=== PATIENT | male | born 1940 | race Caucasian/White ===

== ENCOUNTER 2016-11-02 09:22 | Emergency (ER) | payer MEDICARE, OTHER ==
[~2016-11-02] VITALS: Ht 154.9 cm; Wt 75.7 kg
[~2016-11-02 09:22] MED LIST: AMMO226L TP; BUDE6HFA INH; IBUP-1480 PO; INSU100V26 SUBCUT; INSU100V9 SUBCUT; ISOS120T8 PO; LATA2.5D6 OP; LISI2.5T48 PO; MENTHOL TP; METF-509 PO; OMEP20CA10 PO; ROFL500T PO; SIMV5TAB53 PO; TAMS0.4C96 PO; VIS25 PO; VITD2000 PO; [UNRECOGNIZED DRUG - CODE] TP; [UNRECOGNIZED DRUG - OTHER] TP; ergocalciferol PO; insulin syringe SQ
[2016-11-02 09:30] VITALS: BP_SYST 126
[2016-11-02 11:25] VITALS: BP_SYST 128
== END 2016-11-02 11:25 | disposition home or self-care (01) ==
LOC: SED 09:24
DX: M54.30 Sciatica, unspecified side (principal); J44.9 Chronic obstructive pulmonary disease, unspecified; E11.9 Type 2 diabetes mellitus without complications; I10 Essential (primary) hypertension; Z79.4 Long term (current) use of insulin; Z88.5 Allergy status to narcotic agent; Z88.8 Allergy status to other drugs, medicaments and biological substances
CPT/HCPCS: 72100-TC; 73510-TC; 99284

== ENCOUNTER 2017-08-09 17:11 | Emergency (ER) | payer OTHER ==
[~2017-08-09] VITALS: Ht 154.9 cm; Wt 74.8 kg
[2017-08-09 17:17] VITALS: BP_SYST 107
[2017-08-09] MEDS ORDERED: ASPIRIN 325 MG TABLET PO ONE (17:30)
[2017-08-09] MEDS ORDERED: IPRATROPIUM/ALBUTEROL SULFATE 3 ML AMPUL.NEB INH ONE (17:45)
[2017-08-09] MEDS ORDERED: methylPREDNISolone SOD SUCC/PF 62.5 MG/ML VIAL IM ONE (17:45)
[2017-08-09 17:51] LABS: BASOPHILS % (AUTO) 0.6 % (0.0-2.0); EOSINOPHILS # (AUTO) 0.3 K/uL (0.0-0.4); EOSINOPHILS % (AUTO) 3.8 % (0.0-4.0); HEMATOCRIT 36.6 % (36-54); HEMOGLOBIN 11.5 g/dL (14.0-18.0); LYMPHOCYTES # (AUTO) 0.5 K/uL (1.0-5.5); MEAN CORPUSCULAR HEMOGLOBIN 21 pg (27-31); MEAN CORPUSCULAR HGB CONC 32 % (32-36); MEAN CORPUSCULAR VOLUME 65 fL (79.0-98.0); MONOCYTES # (AUTO) 0.8 K/uL (0.0-1.0); NEUTROPHILS # (AUTO) 6.2 K/uL (1.8-7.7); NEUTROPHILS % (AUTO) 78.6 % (40.0-70.0); PLATELET COUNT (AUTO) 191 K/uL (130-430); RED BLOOD CELL COUNT(AUTO) 5.63 MIL/uL (4.2-6.2); RED CELL DISTRIBUTION WIDTH 15.4 % (9.0-15.0); WHITE BLOOD COUNT (AUTO) 7.9 K/uL (4.8-10.8)
[2017-08-09] MEDS ORDERED: ACLI400A2 IH (18:06)
[2017-08-09] MEDS ORDERED: ISOS30TA6 PO (18:06)
[2017-08-09] MEDS ORDERED: LISI-209 PO (18:06)
[2017-08-09] MEDS ORDERED: LATA2.5D6 OP (18:06)
[2017-08-09] MEDS ORDERED: INSU100I4 SQ (18:06)
[2017-08-09] MEDS ORDERED: CETI1TAB2 PO (18:06)
[2017-08-09] MEDS ORDERED: GUAI100S14 PO (18:06)
[2017-08-09] MEDS ORDERED: INSU100V9 SUBCUT (18:06)
[2017-08-09] MEDS ORDERED: FINA5TAB3 PO (18:06)
[2017-08-09] MEDS ORDERED: ATOR20TA64 PO (18:06)
[2017-08-09] MEDS ORDERED: DITXL5 PO (18:07)
[2017-08-09] MEDS ORDERED: GLU500 PO (18:07)
[2017-08-09 18:12] LABS: ANION GAP 4 (5-15); CALCIUM 8.8 mg/dL (8.4-11.0); CHLORIDE 96 mmol/L (98-107); CREATININE 1.03 mg/dL (0.55-1.30); GLUCOSE 134 mg/dL (70-99); POTASSIUM 4.4 mmol/L (3.5-5.1); SODIUM SERUM 129 mmol/L (136-145); UREA NITROGEN, BLOOD 18 mg/dL (8-21)
[2017-08-09 18:17] LABS: ALANINE AMINOTRANSFERASE 18 U/L (12-78); ALBUMIN 3.6 g/dL (3.4-4.8); ASPARTATE AMINOTRANSFERASE 13 U/L (10-37); TOTAL BILIRUBIN 0.6 mg/dL (0.0-1.0)
[2017-08-09] MEDS ORDERED: NACL 0.9% 1,000 ML IV ONE (18:45)
[2017-08-09] MEDS ORDERED: LEVOFLOXACIN 750 MG TABLET PO ONE (19:00)
[2017-08-09] MEDS ORDERED: LEVOFLOXACIN 500 MG TABLET ONE (19:11)
[2017-08-09 19:25] VITALS: BP_SYST 114
== END 2017-08-09 19:18 | disposition home or self-care (01) ==
LOC: SED 17:11
DX: E87.1 Hypo-osmolality and hyponatremia (principal); D64.9 Anemia, unspecified; J44.9 Chronic obstructive pulmonary disease, unspecified; E11.9 Type 2 diabetes mellitus without complications; I10 Essential (primary) hypertension; Z95.1 Presence of aortocoronary bypass graft; Z88.5 Allergy status to narcotic agent; Z79.82 Long term (current) use of aspirin; Z79.4 Long term (current) use of insulin
CPT/HCPCS: 36415; 71045; 80053; 83880; 84484; 85025; 93005; 94640; 96360; 96372; 99285; J2930; J7030

== ENCOUNTER 2017-08-22 09:35 | Inpatient (IN) | payer OTHER ==
[~2017-08-22] VITALS: Ht 154.9 cm; Wt 70.3 kg
[2017-08-22 09:35] VITALS: BP_SYST 156
[~2017-08-22 09:35] MED LIST changes: +ACLI400A2 IH; +ATOR20TA64 PO; +CETI1TAB2 PO; +DITXL5 PO; +FINA5TAB3 PO; +GLU500 PO; +GUAI100S14 PO; +INSU100I4 SQ; +ISOS30TA6 PO; +LISI-209 PO
[2017-08-22] MEDS ORDERED: ALBUTEROL SULFATE 0.083% 2.5 MG/3 ML VIAL.NEB IH ONE (10:00)
[2017-08-22] MEDS ORDERED: IPRATROPIUM BROM 0.5 MG/2.5 ML VIAL.NEB (ATROVENT) IH ONE (10:00)
[2017-08-22 10:30] LABS: ANION GAP 5 (5-15); BASOPHILS # (AUTO) 0.1 K/uL (0.0-0.2); BASOPHILS % (AUTO) 0.9 % (0.0-2.0); CALCIUM 8.9 mg/dL (8.4-11.0); CHLORIDE 102 mmol/L (98-107); CREATININE 1.08 mg/dL (0.55-1.30); EOSINOPHILS # (AUTO) 0.7 K/uL (0.0-0.4); EOSINOPHILS % (AUTO) 7.5 % (0.0-4.0); GLUCOSE 171 mg/dL (70-99); HEMATOCRIT 37.2 % (36-54); HEMOGLOBIN 11.7 g/dL (14.0-18.0); LYMPHOCYTES # (AUTO) 1.3 K/uL (1.0-5.5); LYMPHOCYTES % (AUTO) 13.4 % (20.5-51.5); MEAN CORPUSCULAR HEMOGLOBIN 21 pg (27-31); MEAN CORPUSCULAR HGB CONC 32 % (32-36); MEAN CORPUSCULAR VOLUME 66 fL (79.0-98.0); MONOCYTES # (AUTO) 0.7 K/uL (0.0-1.0); MONOCYTES % (AUTO) 7.9 % (1.7-9.3); NEUTROPHILS # (AUTO) 6.6 K/uL (1.8-7.7); NEUTROPHILS % (AUTO) 70.3 % (40.0-70.0); PLATELET COUNT (AUTO) 223 K/uL (130-430); POTASSIUM 4.2 mmol/L (3.5-5.1); RED BLOOD CELL COUNT(AUTO) 5.65 MIL/uL (4.2-6.2); RED CELL DISTRIBUTION WIDTH 15.7 % (9.0-15.0); SODIUM SERUM 137 mmol/L (136-145); UREA NITROGEN, BLOOD 17 mg/dL (8-21); WHITE BLOOD COUNT (AUTO) 9.4 K/uL (4.8-10.8)
[2017-08-22 10:32] LABS: PROTHROMBIN TIME 10.4 SECS (9.5-12.5)
[2017-08-22 10:35] LABS: ALANINE AMINOTRANSFERASE 20 U/L (12-78); ALBUMIN 3.7 g/dL (3.4-4.8); ALCOHOL, BLOOD < 3 mg/dL (<10); ASPARTATE AMINOTRANSFERASE 12 U/L (10-37); TOTAL BILIRUBIN 0.6 mg/dL (0.0-1.0)
[2017-08-22] MEDS ORDERED: TAMSULOSIN HCL 0.4 MG CAP PO ONE (11:00)
[2017-08-22] MEDS ORDERED: methylPREDNISolone SOD SUCC/PF 62.5 MG/ML VIAL IVP ONE (11:15)
[2017-08-22 12:31] LABS: BILIRUBIN,URINE NEGATIVE (NEGATIVE); BLOOD, URINE NEGATIVE (NEGATIVE); CLARITY/URINE CLEAR (CLEAR); COLOR,URINE YELLOW (YELLOW); GLUCOSE,URINE NEGATIVE (NEGATIVE); KETONES,URINE NEGATIVE (NEGATIVE); LEUKOCYTE ESTERASE ,URINE NEGATIVE (NEGATIVE); NITRITE, URINE NEGATIVE (NEGATIVE); PH,URINE 7.5 (5.0-8.0); PROTEIN URINE NEGATIVE (NEGATIVE); UROBILINOGEN,URINE 0.2 (0.2-1.0)
[2017-08-22 12:45] LABS: BARBITURATE, URINE NEGATIVE (NEG <=200); BENZODIAZEPINE, URINE NEGATIVE (NEG <=150); CANNABINOID, URINE NEGATIVE (NEG <=50); COCAINE, URINE NEGATIVE (NEG <=150); METHAMPHETAMINES SCREEN,URINE NEGATIVE (NEG <=500); OPIATE, URINE POSITIVE (NEG <=100); PHENCYCLIDINE SCREEN,URINE NEGATIVE (NEG <=25); UR TRICYCLIC ANTIDEPRESSANTS NEGATIVE (NEG <=300); URINE AMPHETAMINE NEGATIVE (NEG <=500); URINE METHADONE NEGATIVE (NEG <=200); URINE OXYCODONE SCREEN NEGATIVE (NEG <=100); URINE PROPOXYPHENE SCREEN NEGATIVE (NEG <=300)
[2017-08-22 13:27] VITALS: BP_SYST 140
[2017-08-22 16:10] VITALS: BP_SYST 136
[2017-08-22] MEDS ORDERED: IPRATROPIUM BROM 0.5 MG/2.5 ML VIAL.NEB (ATROVENT) INH PRN (19:15)
[2017-08-22] MEDS ORDERED: ALBUTEROL SULFATE 0.083% 2.5 MG/3 ML VIAL.NEB INH PRN (19:15)
[2017-08-22] MEDS ORDERED: DEXTROSE 50% JECT 50 ML DISP.SYRIN IVP PRN (19:15)
[2017-08-22 19:45] VITALS: BP_SYST 143
[2017-08-22] MEDS: TAMSULOSIN HCL 0.4 MG CAP PO SCH (21:00)
[2017-08-22] MEDS: OXYBUTYNIN CHLORIDE 5 MG TABLET PO SCH (21:00)
[2017-08-22] MEDS: FINASTERIDE 5 MG TABLET (PROSCAR) PO SCH (21:00)
[2017-08-22] MEDS: cefTRIAXone 1 GM in D5W 50 ML IV SCH (21:25)
[2017-08-22] MEDS: AZITHROMYCIN 500 MG in NS 250 ML IV SCH (21:25)
[2017-08-22] MEDS: methylPREDNISolone SOD SUCC/PF 62.5 MG/ML VIAL IVP SCH (21:26)
[2017-08-22] MEDS ORDERED: ASPI81TA2 PO (21:39)
[2017-08-22] MEDS ORDERED: [UNRECOGNIZED DRUG - CODE] PO (21:43)
[2017-08-22 23:06] VITALS: BP_SYST 119
[2017-08-22] MEDS: INSULIN REGULAR, HUMAN 100 UNITS/ML, 10 ML VIAL (novoLIN R) SUBCUT PRN (23:22)
[2017-08-23] MEDS: IBUPROFEN 800 MG TABLET PO PRN ×2 (00:42→14:29)
[2017-08-23] MEDS ORDERED: guaiFENesin 200 MG/CODEINE 20 MG/ 10 ML UDC PO PRN (00:45)
[2017-08-23] MEDS ORDERED: HALOPERIDOL LACTATE 5 MG/ML VIAL IM PRN (00:45)
[2017-08-23] MEDS: IPRATROPIUM BROM 0.5 MG/2.5 ML VIAL.NEB (ATROVENT) INH SCH ×4 (01:11→19:41)
[2017-08-23] MEDS: ALBUTEROL SULFATE 0.083% 2.5 MG/3 ML VIAL.NEB INH SCH ×4 (01:12→19:41)
[2017-08-23] MEDS: methylPREDNISolone SOD SUCC/PF 62.5 MG/ML VIAL IVP SCH (06:11)
[2017-08-23] MEDS: INSULIN REGULAR, HUMAN 100 UNITS/ML, 10 ML VIAL (novoLIN R) SUBCUT PRN ×3 (06:17→17:44)
[2017-08-23 08:00] VITALS: BP_SYST 143
[2017-08-23] MEDS: metFORMIN HCL 500 MG TABLET PO SCH ×2 (08:56→17:43)
[2017-08-23] MEDS: INSULIN ASPART 100 UNITS/ML, 10 ML VIAL SUBCUT SCH ×3 (08:58→17:45)
[2017-08-23] MEDS: ATORVASTATIN 10 MG TABLET PO SCH (08:59)
[2017-08-23] MEDS: OXYBUTYNIN CHLORIDE 5 MG TABLET PO SCH ×2 (08:59→20:24)
[2017-08-23] MEDS: FINASTERIDE 5 MG TABLET (PROSCAR) PO SCH ×2 (09:00→20:24)
[2017-08-23] MEDS ORDERED: OXYBUTYNIN CHLORIDE 5 MG XL TAB PO SCH (09:00)
[2017-08-23] MEDS: ISOSORBIDE MONONITRATE 30 MG TAB.ER.24H PO SCH (09:00)
[2017-08-23] MEDS: LISINOPRIL 5 MG TABLET PO SCH (09:00)
[2017-08-23] MEDS: OMEPRAZOLE 20 MG CAPSULE.DR (PriLOSEC) PO SCH (09:01)
[2017-08-23] MEDS: CHOLECALCIFEROL (VITAMIN D3) 2,000 UNIT TABLET PO SCH (09:01)
[2017-08-23] MEDS ORDERED: ENOXAPARIN SODIUM 40 MG/0.4 ML SYRINGE SUBCUT ONE (10:30)
[2017-08-23 11:25] VITALS: BP_SYST 133
[2017-08-23 15:42] VITALS: BP_SYST 102
[2017-08-23] MEDS: AZITHROMYCIN 500 MG in NS 250 ML IV SCH (18:00)
[2017-08-23] MEDS: cefTRIAXone 1 GM in D5W 50 ML IV SCH (20:23)
[2017-08-23] MEDS: TAMSULOSIN HCL 0.4 MG CAP PO SCH (20:24)
[2017-08-23] MEDS: methylPREDNISolone SOD SUCC 40 MG/ML VIAL IVP SCH (20:24)
[2017-08-23] MEDS ORDERED: BISACODYL 5 MG TABLET.DR (DULCOLAX) PO PRN (20:45)
[2017-08-23] MEDS: DOCUSATE SODIUM 100 MG CAPSULE PO SCH (21:00)
[2017-08-23 23:05] VITALS: BP_SYST 102
[2017-08-24] MEDS: INSULIN REGULAR, HUMAN 100 UNITS/ML, 10 ML VIAL (novoLIN R) SUBCUT PRN ×4 (00:57→16:51)
[2017-08-24] MEDS: IPRATROPIUM BROM 0.5 MG/2.5 ML VIAL.NEB (ATROVENT) INH SCH ×4 (01:55→19:29)
[2017-08-24] MEDS: ALBUTEROL SULFATE 0.083% 2.5 MG/3 ML VIAL.NEB INH SCH ×4 (01:55→19:29)
[2017-08-24 07:45] VITALS: BP_SYST 136
[2017-08-24] MEDS: OMEPRAZOLE 20 MG CAPSULE.DR (PriLOSEC) PO SCH (08:27)
[2017-08-24] MEDS: FINASTERIDE 5 MG TABLET (PROSCAR) PO SCH ×2 (08:27→20:51)
[2017-08-24] MEDS: CHOLECALCIFEROL (VITAMIN D3) 2,000 UNIT TABLET PO SCH (08:27)
[2017-08-24] MEDS: OXYBUTYNIN CHLORIDE 5 MG TABLET PO SCH ×2 (08:27→20:51)
[2017-08-24] MEDS: ATORVASTATIN 10 MG TABLET PO SCH (08:28)
[2017-08-24] MEDS: DOCUSATE SODIUM 100 MG CAPSULE PO SCH ×2 (08:28→20:51)
[2017-08-24] MEDS: ISOSORBIDE MONONITRATE 30 MG TAB.ER.24H PO SCH (08:28)
[2017-08-24] MEDS: metFORMIN HCL 500 MG TABLET PO SCH ×2 (08:28→17:01)
[2017-08-24] MEDS: ENOXAPARIN SODIUM 40 MG/0.4 ML SYRINGE SUBCUT SCH (08:29)
[2017-08-24] MEDS: LISINOPRIL 5 MG TABLET PO SCH (08:29)
[2017-08-24] MEDS: INSULIN ASPART 100 UNITS/ML, 10 ML VIAL SUBCUT SCH ×3 (08:30→16:50)
[2017-08-24] MEDS: methylPREDNISolone SOD SUCC 40 MG/ML VIAL IVP SCH ×2 (08:31→20:50)
[2017-08-24 12:40] VITALS: BP_SYST 105
[2017-08-24 17:04] VITALS: BP_SYST 115
[2017-08-24] MEDS ORDERED: HALOPERIDOL 1 MG TABLET (HALDOL) PO ONE (18:30)
[2017-08-24] MEDS: AZITHROMYCIN 500 MG in NS 250 ML IV SCH (18:30)
[2017-08-24 20:00] VITALS: BP_SYST 118
[2017-08-24] MEDS: cefTRIAXone 1 GM in D5W 50 ML IV SCH (20:50)
[2017-08-24] MEDS: TAMSULOSIN HCL 0.4 MG CAP PO SCH (20:51)
[2017-08-25] VITALS: BP_SYST 133
[2017-08-25] MEDS: INSULIN REGULAR, HUMAN 100 UNITS/ML, 10 ML VIAL (novoLIN R) SUBCUT PRN ×2 (00:13→12:55)
[2017-08-25] MEDS: ALBUTEROL SULFATE 0.083% 2.5 MG/3 ML VIAL.NEB INH SCH ×3 (01:29→13:10)
[2017-08-25] MEDS: IPRATROPIUM BROM 0.5 MG/2.5 ML VIAL.NEB (ATROVENT) INH SCH ×3 (01:30→13:10)
[2017-08-25 08:00] VITALS: BP_SYST 118
[2017-08-25] MEDS: ATORVASTATIN 10 MG TABLET PO SCH (09:04)
[2017-08-25] MEDS: methylPREDNISolone SOD SUCC 40 MG/ML VIAL IVP SCH (09:05)
[2017-08-25] MEDS: ISOSORBIDE MONONITRATE 30 MG TAB.ER.24H PO SCH (09:05)
[2017-08-25] MEDS: metFORMIN HCL 500 MG TABLET PO SCH (09:05)
[2017-08-25] MEDS: DOCUSATE SODIUM 100 MG CAPSULE PO SCH (09:06)
[2017-08-25] MEDS: OXYBUTYNIN CHLORIDE 5 MG TABLET PO SCH (09:06)
[2017-08-25] MEDS: FINASTERIDE 5 MG TABLET (PROSCAR) PO SCH (09:07)
[2017-08-25] MEDS: OMEPRAZOLE 20 MG CAPSULE.DR (PriLOSEC) PO SCH (09:07)
[2017-08-25] MEDS: LISINOPRIL 5 MG TABLET PO SCH (09:07)
[2017-08-25] MEDS: ENOXAPARIN SODIUM 40 MG/0.4 ML SYRINGE SUBCUT SCH (09:08)
[2017-08-25] MEDS: CHOLECALCIFEROL (VITAMIN D3) 2,000 UNIT TABLET PO SCH (09:08)
[2017-08-25] MEDS: INSULIN ASPART 100 UNITS/ML, 10 ML VIAL SUBCUT SCH ×2 (09:10→12:53)
[2017-08-25] MEDS ORDERED: METH4TAB3 PO (10:18)
[2017-08-25] MEDS ORDERED: AMOX-426 PO (10:18)
[2017-08-25] MEDS ORDERED: IPRA0.2S6 INH (10:19)
[2017-08-25] MEDS ORDERED: ALBU2.5V7 INH (10:19)
[2017-08-25] MEDS ORDERED: SER25 PO (10:20)
[2017-08-25 12:00] VITALS: BP_SYST 137
[2017-08-25 13:38] VITALS: BP_SYST 115
== END 2017-08-25 14:50 | disposition home or self-care (01) | DRG 189 ==
LOC: SED 09:35 → STU 12:36
PROVIDERS: ADMIT Internal Medicine Hospice and Palliative Medicine; ATTEND Internal Medicine Hospice and Palliative Medicine
DX: J96.21 Acute and chronic respiratory failure with hypoxia (principal); Z99.81 Dependence on supplemental oxygen; E11.9 Type 2 diabetes mellitus without complications; J44.0 Chronic obstructive pulmonary disease with (acute) lower respiratory infection; J44.1 Chronic obstructive pulmonary disease with (acute) exacerbation; R44.1 Visual hallucinations; I10 Essential (primary) hypertension; E78.5 Hyperlipidemia, unspecified; J20.9 Acute bronchitis, unspecified; I25.10 Atherosclerotic heart disease of native coronary artery without angina pectoris; Z95.1 Presence of aortocoronary bypass graft; Z87.891 Personal history of nicotine dependence; Z87.01 Personal history of pneumonia (recurrent); Z88.8 Allergy status to other drugs, medicaments and biological substances; Z88.5 Allergy status to narcotic agent; Z79.899 Other long term (current) drug therapy; Z79.4 Long term (current) use of insulin; Z79.82 Long term (current) use of aspirin
CPT/HCPCS: 36415; 36600; 70450-TC; 70551; 71045; 80053; 80307; 81003; 82803-TC; 82962; 83605; 84484; 85025; 85610-TC; 85730-TC; 87040-TC; 93005; 94640; 94760; 96374; 99285; G0482; J0456; J0696; J1030; J1650; J1815; J2930; J7050; J7060

== ENCOUNTER 2018-04-12 12:44 | Emergency (ER) | payer OTHER ==
[~2018-04-12] VITALS: Ht 175.3 cm; Wt 72.6 kg
[~2018-04-12 12:44] MED LIST changes: +ALBU2.5V7 INH; +AMOX-426 PO; +ASPI-1155 PO; -DITXL5 PO; -GUAI100S14 PO; +GUAI400T78 PO; -IBUP-1480 PO; +IBUP-1970 PO; +IPRA0.2S6 INH; -ISOS120T8 PO; -LATA2.5D6 OP; -LISI2.5T48 PO; -MENTHOL TP; -METF-509 PO; -ROFL500T PO; -SIMV5TAB53 PO; -VIS25 PO; -VITD2000 PO; +XALEYE OP; -[UNRECOGNIZED DRUG - OTHER] TP; -ergocalciferol PO; -insulin syringe SQ
[2018-04-12 12:52] VITALS: BP_SYST 110
[2018-04-12 14:10] VITALS: BP_SYST 110
== END 2018-04-12 14:10 | disposition home or self-care (01) ==
LOC: SED 12:44
DX: S40.011A Contusion of right shoulder, initial encounter (principal); J44.9 Chronic obstructive pulmonary disease, unspecified; E11.9 Type 2 diabetes mellitus without complications; I10 Essential (primary) hypertension; Z86.79 Personal history of other diseases of the circulatory system; Z79.82 Long term (current) use of aspirin; Z79.899 Other long term (current) drug therapy; W10.9XXA Fall (on) (from) unspecified stairs and steps, initial encounter; Y93.89 Activity, other specified; Y92.89 Other specified places as the place of occurrence of the external cause; Y99.8 Other external cause status
CPT/HCPCS: 73030; 99284

== ENCOUNTER 2018-04-22 16:52 | Emergency (ER) | payer OTHER ==
[2018-04-22 17:02] VITALS: BP_SYST 111
[2018-04-22 18:31] LABS: BASOPHILS # (AUTO) 0.1 K/uL (0.0-0.2); BASOPHILS % (AUTO) 0.7 % (0.0-2.0); EOSINOPHILS # (AUTO) 0.6 K/uL (0.0-0.4); EOSINOPHILS % (AUTO) 7.8 % (0.0-4.0); HEMOGLOBIN 11.8 g/dL (14.0-18.0); LYMPHOCYTES # (AUTO) 1.2 K/uL (1.0-5.5); LYMPHOCYTES % (AUTO) 15.4 % (20.5-51.5); MEAN CORPUSCULAR HEMOGLOBIN 21 pg (27-31); MEAN CORPUSCULAR HGB CONC 32 % (32-36); MEAN CORPUSCULAR VOLUME 66 fL (79.0-98.0); MONOCYTES # (AUTO) 0.7 K/uL (0.0-1.0); MONOCYTES % (AUTO) 8.5 % (1.7-9.3); NEUTROPHILS # (AUTO) 5.5 K/uL (1.8-7.7); NEUTROPHILS % (AUTO) 67.6 % (40.0-70.0); PLATELET COUNT (AUTO) 210 K/uL (130-430); RED BLOOD CELL COUNT(AUTO) 5.61 MIL/uL (4.2-6.2); RED CELL DISTRIBUTION WIDTH 15.6 % (9.0-15.0); WHITE BLOOD COUNT (AUTO) 8.1 K/uL (4.8-10.8)
[2018-04-22 18:45] LABS: ANION GAP 8 (5-15); CALCIUM 8.9 mg/dL (8.4-11.0); CHLORIDE 101 mmol/L (98-107); CREATININE 1.06 mg/dL (0.55-1.30); GLUCOSE 191 mg/dL (70-99); POTASSIUM 4.3 mmol/L (3.5-5.1); SODIUM SERUM 134 mmol/L (136-145); UREA NITROGEN, BLOOD 19 mg/dL (8-21)
[2018-04-22 18:51] LABS: ALANINE AMINOTRANSFERASE 18 U/L (12-78); ALBUMIN 3.5 g/dL (3.4-4.8); ASPARTATE AMINOTRANSFERASE 11 U/L (10-37); TOTAL BILIRUBIN 0.7 mg/dL (0.0-1.0)
[2018-04-22 20:40] LABS: BILIRUBIN,URINE NEGATIVE (NEGATIVE); BLOOD, URINE NEGATIVE (NEGATIVE); CLARITY/URINE CLEAR (CLEAR); COLOR,URINE YELLOW (YELLOW); GLUCOSE,URINE NEGATIVE (NEGATIVE); KETONES,URINE 1+ (NEGATIVE); LEUKOCYTE ESTERASE ,URINE NEGATIVE (NEGATIVE); NITRITE, URINE NEGATIVE (NEGATIVE); PROTEIN URINE NEGATIVE (NEGATIVE)
[2018-04-22 20:48] VITALS: BP_SYST 122
== END 2018-04-22 20:48 | disposition home or self-care (01) ==
LOC: SED 16:52
DX: H83.09 Labyrinthitis, unspecified ear (principal); R42 Dizziness and giddiness; J44.9 Chronic obstructive pulmonary disease, unspecified; E11.9 Type 2 diabetes mellitus without complications; E66.9 Obesity, unspecified; I10 Essential (primary) hypertension; Z86.79 Personal history of other diseases of the circulatory system; Z88.6 Allergy status to analgesic agent; Z88.8 Allergy status to other drugs, medicaments and biological substances; Z79.899 Other long term (current) drug therapy
CPT/HCPCS: 36415; 71045; 80053; 81003; 85025; 99282; 99284

== ENCOUNTER 2018-10-06 14:14 | Inpatient (IN) | payer OTHER ==
[~2018-10-06] VITALS: Ht 154.9 cm; Wt 69.4 kg
[2018-10-06 14:18] VITALS: BP_SYST 126
[2018-10-06] MEDS ORDERED: ASPIRIN 81 MG TAB.CHEW PO ONE (14:45)
[2018-10-06] MEDS ORDERED: HYDROcodone/ACETAMIN 5-325 MG TAB (NORCO/ VICODIN) PO ONE (14:45)
[2018-10-06 15:04] LABS: EOSINOPHILS # (AUTO) 0.8 K/uL (0.0-0.4); EOSINOPHILS % (AUTO) 10.3 % (0.0-4.0); HEMATOCRIT 37.1 % (36-54); HEMOGLOBIN 11.8 g/dL (14.0-18.0); LYMPHOCYTES # (AUTO) 0.8 K/uL (1.0-5.5); LYMPHOCYTES % (AUTO) 11.4 % (20.5-51.5); MEAN CORPUSCULAR HEMOGLOBIN 20 pg (27-31); MEAN CORPUSCULAR HGB CONC 32 % (32-36); MEAN CORPUSCULAR VOLUME 63 fL (79.0-98.0); MONOCYTES # (AUTO) 0.6 K/uL (0.0-1.0); MONOCYTES % (AUTO) 7.6 % (1.7-9.3); PLATELET COUNT (AUTO) 211 K/uL (130-430); RED BLOOD CELL COUNT(AUTO) 5.88 MIL/uL (4.2-6.2); RED CELL DISTRIBUTION WIDTH 17.3 % (9.0-15.0); WHITE BLOOD COUNT (AUTO) 7.4 K/uL (4.8-10.8)
[2018-10-06 15:10] LABS: BASOPHILS % (AUTO) 0.7 % (0.0-2.0); NEUTROPHILS # (AUTO) 5.2 K/uL (1.8-7.7)
[2018-10-06 15:18] LABS: ANION GAP 5 (5-15); CALCIUM 8.7 mg/dL (8.4-11.0); CHLORIDE 103 mmol/L (98-107); CREATININE 1.13 mg/dL (0.55-1.30); GLUCOSE 243 mg/dL (70-99); POTASSIUM 4.4 mmol/L (3.5-5.1); SODIUM SERUM 132 mmol/L (136-145); UREA NITROGEN, BLOOD 22 mg/dL (8-21)
[2018-10-06 15:22] LABS: ALANINE AMINOTRANSFERASE 17 U/L (12-78); ALBUMIN 3.3 g/dL (3.4-4.8); ASPARTATE AMINOTRANSFERASE 10 U/L (10-37); TOTAL BILIRUBIN 0.9 mg/dL (0.0-1.0)
[2018-10-06 16:37] LABS: BILIRUBIN,URINE NEGATIVE (NEGATIVE); BLOOD, URINE NEGATIVE (NEGATIVE); CLARITY/URINE CLEAR (CLEAR); COLOR,URINE YELLOW (YELLOW); GLUCOSE,URINE TRACE (NEGATIVE); KETONES,URINE NEGATIVE (NEGATIVE); LEUKOCYTE ESTERASE ,URINE NEGATIVE (NEGATIVE); NITRITE, URINE NEGATIVE (NEGATIVE); PH,URINE 5.5 (5.0-8.0); PROTEIN URINE NEGATIVE (NEGATIVE)
[2018-10-06] MEDS ORDERED: NACL 0.9% 1,000 ML IV ONE (17:00)
[2018-10-06] MEDS ORDERED: FLUT15.88 NS (18:42)
[2018-10-06] MEDS ORDERED: MOME13HF2 INH (18:44)
[2018-10-06] MEDS ORDERED: OXYB5TAB11 PO (18:48)
[2018-10-06] MEDS ORDERED: NACL 0.9% 1,000 ML IV SCH (19:00)
[2018-10-06] MEDS ORDERED: IOHEXOL 350 mgI/mL, 150 ML INFUS..BTL IV ONE (19:59)
[2018-10-06 20:31] VITALS: BP_SYST 145
[2018-10-06] MEDS ORDERED: GLUCOSE 15 GM GEL (in 37.5 GM TUBE) PO PRN (23:45)
[2018-10-06] MEDS ORDERED: D5W 1,000 ML IV PRN (23:45)
[2018-10-06] MEDS ORDERED: IPRATROPIUM/ALBUTEROL SULFATE 3 ML AMPUL.NEB (DUONEB) INH PRN (23:45)
[2018-10-06] MEDS ORDERED: DEXTROSE 50% JECT 50 ML DISP.SYRIN IVP PRN (23:45)
[2018-10-06] MEDS ORDERED: MINERAL OIL 30 ML UDC PO ONE (23:45)
[2018-10-06] MEDS ORDERED: FUROSEMIDE 20 MG/2 ML VIAL IVP SCH (23:55)
[2018-10-07 00:22] VITALS: BP_SYST 110
[2018-10-07 00:30] VITALS: BP_SYST 110
[2018-10-07] MEDS ORDERED: LEVOFLOXACIN 500 MG/D5W 100 ML IV SCH (01:00)
[2018-10-07 01:21] LABS: BILIRUBIN,URINE NEGATIVE (NEGATIVE); BLOOD, URINE 3+ (NEGATIVE); CLARITY/URINE CLEAR (CLEAR); COLOR,URINE YELLOW (YELLOW); GLUCOSE,URINE NEGATIVE (NEGATIVE); KETONES,URINE NEGATIVE (NEGATIVE); LEUKOCYTE ESTERASE ,URINE NEGATIVE (NEGATIVE); NITRITE, URINE NEGATIVE (NEGATIVE); PROTEIN URINE NEGATIVE (NEGATIVE); UROBILINOGEN,URINE 0.2 (0.2-1.0)
[2018-10-07 01:25] LABS: BACTERIA,URINE RARE /HPF (None Seen); WBC,URINE 0-3 /HPF (0-3)
[2018-10-07] MEDS ORDERED: LEVOFLOXACIN 500 MG/D5W 100 ML IV ONE (01:36)
[2018-10-07] MEDS: INSULIN LISPRO SLIDING SCALE 100 UNITS/ML VIAL (humaLOG) SUBCUT PRN ×4 (06:16→20:13)
[2018-10-07 06:49] LABS: BASOPHILS % (AUTO) 0.5 % (0.0-2.0); EOSINOPHILS % (AUTO) 0.6 % (0.0-4.0); HEMATOCRIT 36.8 % (36-54); HEMOGLOBIN 11.7 g/dL (14.0-18.0); LYMPHOCYTES # (AUTO) 0.4 K/uL (1.0-5.5); LYMPHOCYTES % (AUTO) 4.7 % (20.5-51.5); MEAN CORPUSCULAR HEMOGLOBIN 20 pg (27-31); MEAN CORPUSCULAR HGB CONC 32 % (32-36); MEAN CORPUSCULAR VOLUME 63 fL (79.0-98.0); MONOCYTES # (AUTO) 0.1 K/uL (0.0-1.0); MONOCYTES % (AUTO) 1.6 % (1.7-9.3); NEUTROPHILS % (AUTO) 92.6 % (40.0-70.0); PLATELET COUNT (AUTO) 212 K/uL (130-430); RED BLOOD CELL COUNT(AUTO) 5.87 MIL/uL (4.2-6.2); RED CELL DISTRIBUTION WIDTH 16.9 % (9.0-15.0); WHITE BLOOD COUNT (AUTO) 7.5 K/uL (4.8-10.8)
[2018-10-07 07:31] LABS: ANION GAP 8 (5-15); CALCIUM 8.3 mg/dL (8.4-11.0); CHLORIDE 101 mmol/L (98-107); CREATININE 1.13 mg/dL (0.55-1.30); GLUCOSE 290 mg/dL (70-99); POTASSIUM 4.5 mmol/L (3.5-5.1); SODIUM SERUM 136 mmol/L (136-145); UREA NITROGEN, BLOOD 20 mg/dL (8-21)
[2018-10-07 07:40] LABS: ALANINE AMINOTRANSFERASE 17 U/L (12-78); ALBUMIN 3.2 g/dL (3.4-4.8); ASPARTATE AMINOTRANSFERASE 11 U/L (10-37); TOTAL BILIRUBIN 0.8 mg/dL (0.0-1.0)
[2018-10-07] MEDS: TAMSULOSIN HCL 0.4 MG CAP PO SCH (08:24)
[2018-10-07] MEDS: FINASTERIDE 5 MG TABLET (PROSCAR) PO SCH (08:24)
[2018-10-07] MEDS: ASPIRIN 81 MG TABLET(ECOTRIN) PO SCH (08:24)
[2018-10-07] MEDS: LISINOPRIL 5 MG TABLET PO SCH (08:24)
[2018-10-07] MEDS: DOCUSATE SODIUM 100 MG CAPSULE PO SCH ×2 (08:25→20:14)
[2018-10-07] MEDS ORDERED: MINERAL OIL 30 ML UDC PO ONE (08:30)
[2018-10-07] MEDS: FUROSEMIDE 20 MG TABLET PO SCH ×2 (09:00→20:14)
[2018-10-07] MEDS ORDERED: methylPREDNISolone SOD SUCC 40 MG/ML VIAL IVP SCH ×2 (09:00)
[2018-10-07] MEDS ORDERED: ATORVASTATIN 20 MG TABLET PO SCH (09:00)
[2018-10-07] MEDS ORDERED: FUROSEMIDE 20 MG/2 ML VIAL IVP SCH (09:00)
[2018-10-07 09:21] VITALS: BP_SYST 135
[2018-10-07 11:15] VITALS: BP_SYST 144
[2018-10-07 14:57] LABS: CHOLESTEROL 122 mg/dL (<200); HDL CHOLESTEROL 39 mg/dL (>45); LDL CHOLESTEROL 78 mg/dL (<100); TRIGLYCERIDES 46 mg/dL (30-150)
[2018-10-07 15:29] VITALS: BP_SYST 131
[2018-10-07] MEDS: methylPREDNISolone SOD SUCC 40 MG/ML VIAL IVP SCH (20:15)
[2018-10-07] MEDS: HYDROcodone/ACETAMIN 5-325 MG TAB (NORCO/ VICODIN) PO PRN (20:15)
[2018-10-08] MEDS: LEVOFLOXACIN 250 MG/D5W 50 ML IV SCH (00:11)
[2018-10-08 00:34] VITALS: BP_SYST 108
[2018-10-08] MEDS: INSULIN LISPRO SLIDING SCALE 100 UNITS/ML VIAL (humaLOG) SUBCUT PRN ×4 (05:51→20:56)
[2018-10-08 07:50] VITALS: BP_SYST 118
[2018-10-08] MEDS: methylPREDNISolone SOD SUCC 40 MG/ML VIAL IVP SCH (08:46)
[2018-10-08] MEDS: DOCUSATE SODIUM 100 MG CAPSULE PO SCH ×2 (08:47→20:52)
[2018-10-08] MEDS: FINASTERIDE 5 MG TABLET (PROSCAR) PO SCH (08:47)
[2018-10-08] MEDS: LISINOPRIL 5 MG TABLET PO SCH (08:48)
[2018-10-08] MEDS: TAMSULOSIN HCL 0.4 MG CAP PO SCH (08:48)
[2018-10-08] MEDS: FUROSEMIDE 20 MG TABLET PO SCH (08:49)
[2018-10-08] MEDS: ASPIRIN 81 MG TABLET(ECOTRIN) PO SCH (08:49)
[2018-10-08] MEDS: ATORVASTATIN 20 MG TABLET PO SCH (09:03)
[2018-10-08] MEDS: HYDROcodone/ACETAMIN 5-325 MG TAB (NORCO/ VICODIN) PO PRN (09:05)
[2018-10-08 12:00] VITALS: BP_SYST 100
[2018-10-08 16:08] VITALS: BP_SYST 135
[2018-10-08] MEDS ORDERED: INSULIN Lispro 100 UNITS/ML VIAL (humaLOG) SUBCUT ONE (18:45)
[2018-10-08] MEDS: PREDNISONE 20 MG TABLET PO SCH (20:52)
[2018-10-08 23:33] VITALS: BP_SYST 119
[2018-10-09] MEDS: LEVOFLOXACIN 250 MG/D5W 50 ML IV SCH (00:35)
[2018-10-09] MEDS: INSULIN LISPRO SLIDING SCALE 100 UNITS/ML VIAL (humaLOG) SUBCUT PRN (06:25)
[2018-10-09 08:08] VITALS: BP_SYST 118
[2018-10-09] MEDS: DOCUSATE SODIUM 100 MG CAPSULE PO SCH (08:42)
[2018-10-09] MEDS: ATORVASTATIN 20 MG TABLET PO SCH (08:42)
[2018-10-09] MEDS: FUROSEMIDE 20 MG TABLET PO SCH (08:43)
[2018-10-09] MEDS: ASPIRIN 81 MG TABLET(ECOTRIN) PO SCH (08:43)
[2018-10-09] MEDS: LISINOPRIL 5 MG TABLET PO SCH (08:43)
[2018-10-09] MEDS: FINASTERIDE 5 MG TABLET (PROSCAR) PO SCH (08:43)
[2018-10-09] MEDS: PREDNISONE 20 MG TABLET PO SCH (08:44)
[2018-10-09] MEDS: TAMSULOSIN HCL 0.4 MG CAP PO SCH ×3 (08:46→09:04)
[2018-10-09] MEDS: HYDROcodone/ACETAMIN 5-325 MG TAB (NORCO/ VICODIN) PO PRN (09:05)
[2018-10-09] MEDS ORDERED: AMOX-426 PO (09:54)
[2018-10-09] MEDS ORDERED: PRED20TA PO (09:54)
[2018-10-09 10:13] VITALS: BP_SYST 118
[2018-10-09 12:22] VITALS: BP_SYST 126
== END 2018-10-09 13:00 | disposition home or self-care (01) | DRG 202 ==
LOC: SED 14:14 → STU 19:00 → SMU 10-08 11:06
PROVIDERS: ADMIT Internal Medicine; ATTEND Internal Medicine Hospice and Palliative Medicine
PROC: 5A09357 Assistance with Respiratory Ventilation, Less than 24 Consecutive Hours, Continuous Positive Airway Pressure (ICD-10-PCS; principal; 2018-10-07)
DX: J20.9 Acute bronchitis, unspecified (principal); J44.0 Chronic obstructive pulmonary disease with (acute) lower respiratory infection; J44.1 Chronic obstructive pulmonary disease with (acute) exacerbation; I11.0 Hypertensive heart disease with heart failure; E11.9 Type 2 diabetes mellitus without complications; E78.5 Hyperlipidemia, unspecified; H91.90 Unspecified hearing loss, unspecified ear; I25.10 Atherosclerotic heart disease of native coronary artery without angina pectoris; I50.9 Heart failure, unspecified; Z83.3 Family history of diabetes mellitus; Z82.49 Family history of ischemic heart disease and other diseases of the circulatory system; Z87.891 Personal history of nicotine dependence; Z95.1 Presence of aortocoronary bypass graft; Z88.5 Allergy status to narcotic agent; Z88.8 Allergy status to other drugs, medicaments and biological substances
CPT/HCPCS: 36415; 71045; 71275; 80053; 80061; 81000-TC; 81003; 82550-TC; 82962; 83605; 83880; 84484; 85025; 93005; 93306; 94660; 96360; 99285; G0378; J1030; J1940; J1956; J7512; Q9967

== ENCOUNTER 2020-01-24 08:28 | Emergency (ER) | payer OTHER ==
[~2020-01-24] VITALS: Ht 154.9 cm; Wt 82.6 kg
[~2020-01-24 08:28] MED LIST changes: -ACLI400A2 IH; -ALBU2.5V7 INH; +FLUT15.842 NS; -INSU100V26 SUBCUT; -IPRA0.2S6 INH; +MOME13HF2 INH; -OMEP20CA10 PO; +OMEP20CA11 PO; +OXYB5TAB11 PO; +PRED20TA PO; -[UNRECOGNIZED DRUG - CODE] TP
[2020-01-24 08:34] VITALS: BP_SYST 151
--- NOTE | 2020-01-24 08:38 | NUR ---
Patient to ER bed 04 to gown for evaluation. Side rails up.
--- NOTE | 2020-01-24 08:40 | NUR ---
Pt walked in to ER with c/o small wound to right lower leg. Reports hx of diabetes and wanted to get wound checked. V/S stable, pt is afebrile. Currently sitting at bedside, will continue to monitor.
--- NOTE | 2020-01-24 08:45 | NUR ---
ER Dr. Irby at bedside examining patient.
--- NOTE | 2020-01-24 08:50 | NUR ---
Site to right lower leg cleansed with NS. Vasoline gauze and kerlix dressing applied. Pt tolerated well.
--- NOTE | 2020-01-24 09:10 | NUR ---
Patient given written and verbal discharge instructions and verbalizes understanding. ER MD discussed with patient the results and treatment provided. Patient in stable condition. ID arm band removed. Rx of Keflex, Bactrim and Motrin given. Patient educated on pain management and to follow up with PMD. Pain Scale 0. Opportunity for questions provided and answered. Medication side effect fact sheet provided.
[2020-01-24 09:14] VITALS: BP_SYST 151
== END 2020-01-24 09:10 | disposition home or self-care (01) ==
LOC: SED 08:28
DX: L03.115 Cellulitis of right lower limb (principal); I10 Essential (primary) hypertension; E11.9 Type 2 diabetes mellitus without complications; J45.909 Unspecified asthma, uncomplicated; Z88.5 Allergy status to narcotic agent; Z88.8 Allergy status to other drugs, medicaments and biological substances; Z79.82 Long term (current) use of aspirin; Z79.899 Other long term (current) drug therapy
CPT/HCPCS: 99283

== ENCOUNTER 2020-08-11 17:08 | Inpatient (IN) | payer OTHER, SELFPAY ==
[~2020-08-11] VITALS: Ht 157.5 cm; Wt 64.2 kg
[~2020-08-11 17:08] MED LIST changes: -GUAI400T78 PO; +GUAI400T93 PO; -ISOS30TA6 PO; +ISOS30TA85 PO; -OMEP20CA11 PO; +OMEP20CA15 PO; -OXYB5TAB11 PO; +OXYB5TAB18 PO
--- NOTE | 2020-08-11 17:14 | NUR ---
Patient Alert and oriented x3 with episodes of confusion BIB [facility] via gurney for abdominal pain. Patient was brought in as well for hyperglycemia. currenly pain level is stated 8/10 on the pain scale. Patient came with a 20 gauge PIV to Left AC. blood sugar done at bedside reading 355. made aware.
--- NOTE | 2020-08-11 17:14 | NUR ---
Dr. Interiano at bedside to evaluation patient.
--- NOTE | 2020-08-11 17:14 | NUR ---
Placed in room 05 . Placed on door to door salesperson, blood pressure machine and pulse oximeter. To gown for exam. Side rails up.
[2020-08-11] MEDS ORDERED: ONDANSETRON HCL 4 MG/2 ML VIAL IVP ONE (17:15)
[2020-08-11] MEDS ORDERED: fentaNYL CITRATE/PF 100 MCG/2 ML AMP IVP ONE ×2 (17:15→19:15)
[2020-08-11] MEDS ORDERED: DIPHENHYDRAMINE INJ 50 MG/ML VIAL IVP ONE (17:15)
--- NOTE | 2020-08-11 17:16 | NUR ---
PORTABLE CHEST X RAY AT BEDSIDE.
[2020-08-11 17:20] VITALS: BP_SYST 188
--- NOTE | 2020-08-11 17:36 | NUR ---
COVID Christina Swab collected and sent to Lab for analysis.
[2020-08-11 17:40] LABS: HEMATOCRIT 42.4 % (36-54); HEMOGLOBIN 13.1 g/dL (14.0-18.0); MEAN CORPUSCULAR HEMOGLOBIN 20 pg (27-31); MEAN CORPUSCULAR HGB CONC 31 % (32-36); MEAN CORPUSCULAR VOLUME 66 fL (79.0-98.0); PLATELET COUNT (AUTO) 279 K/uL (130-430); RED BLOOD CELL COUNT(AUTO) 6.45 MIL/uL (4.2-6.2); RED CELL DISTRIBUTION WIDTH 15.9 % (9.0-15.0); WHITE BLOOD COUNT (AUTO) 16.8 K/uL (4.8-10.8)
--- NOTE | 2020-08-11 17:42 | NUR ---
Pt states he is unable to urine at this time, pt refusing urinary catheter.
[2020-08-11 17:57] LABS: ANION GAP 15 (5-15); CHLORIDE 99 mmol/L (98-107); CREATININE 1.33 mg/dL (0.55-1.30); GLUCOSE 362 mg/dL (70-99); POTASSIUM 3.7 mmol/L (3.5-5.1); SODIUM SERUM 137 mmol/L (136-145); UREA NITROGEN, BLOOD 28 mg/dL (8-21)
--- NOTE | 2020-08-11 17:59 | NUR ---
Pt returning from CT on stable condition.
[2020-08-11 18:03] LABS: ALANINE AMINOTRANSFERASE 19 U/L (12-78); ALBUMIN 4.1 g/dL (3.4-4.8); ASPARTATE AMINOTRANSFERASE 14 U/L (10-37); LIPASE 71 U/L (73-393); TOTAL BILIRUBIN 0.9 mg/dL (0.0-1.0)
[2020-08-11] MEDS ORDERED: metroNIDAZOLE 500 mg/NS 100 ML IV ONE (18:30)
[2020-08-11] MEDS ORDERED: NACL 0.9% 1,000 ML IV ONE ×2 (18:30→19:15)
[2020-08-11] MEDS ORDERED: PIPERACILLIN/TAZO 3.375 GM in NS 50 ML IV ONE (18:30)
[2020-08-11] MEDS ORDERED: INSULIN REGULAR, HUMAN 10 UNITS/0.1 ML INJ IVP ONE (18:30)
[2020-08-11] MEDS ORDERED: PIPERACILLIN/TAZOBACTAM 3.375 GM/VIAL (ZOSYN) IV ONE (18:38)
[2020-08-11 19:04] LABS: BAND % (MANUAL) 6 % (0-6)
[2020-08-11 19:05] LABS: BASOPHILS % (MANUAL) 0 % (0-2); EOSINOPHILS % (MANUAL) 2 % (0-7); LYMPHOCYTES % (MANUAL) 4 % (20-46); MONOCYTES % (MANUAL) 8 % (0-11)
[2020-08-11 19:12] LABS: CHOLESTEROL 142 mg/dL (<200); HDL CHOLESTEROL 42 mg/dL (>45); LDL CHOLESTEROL 91 mg/dL (<100); TRIGLYCERIDES 144 mg/dL (30-150)
[2020-08-11] MEDS ORDERED: ASPIRIN 325 MG TABLET PO ONE (19:15)
[2020-08-11] MEDS ORDERED: NACL 0.9% 1,000 ML IV SCH (19:30)
[2020-08-11] MEDS ORDERED: ONDANSETRON HCL 4 MG/2 ML VIAL IVP PRN (19:30)
[2020-08-11] MEDS ORDERED: PIPERACILLIN/TAZO 3.375/DEX-IS 50 ML IV ONE (19:30)
--- NOTE | 2020-08-11 19:36 | NUR ---
PCR COVID swab collected and sent to lab for analysis.
--- NOTE | 2020-08-11 19:42 | NUR ---
Belongings list done at the beside with patient and placed in belongings bag.
--- NOTE | 2020-08-11 20:01 | NUR ---
Pt c/o mild SOB, RT notified, RT at bedside for breathing treatment.
[2020-08-11 20:06] LABS: BILIRUBIN,URINE NEGATIVE (NEGATIVE); CLARITY/URINE CLEAR (CLEAR); COLOR,URINE YELLOW (YELLOW); GLUCOSE,URINE 3+ (NEGATIVE); KETONES,URINE 2+ (NEGATIVE); LEUKOCYTE ESTERASE ,URINE NEGATIVE (NEGATIVE); NITRITE, URINE NEGATIVE (NEGATIVE); PROTEIN URINE 1+ (NEGATIVE); UROBILINOGEN,URINE 0.2 (0.2-1.0)
[2020-08-11 20:08] LABS: BLOOD, URINE TRACE (NEGATIVE)
[2020-08-11] MEDS ORDERED: MILK OF MAGNESIA 30 ML UDC PO PRN (20:15)
[2020-08-11] MEDS ORDERED: BISACODYL 10 MG/SUPPOSITORY RC ONE (20:15)
[2020-08-11] MEDS ORDERED: MILK OF MAGNESIA 30 ML UDC PO ONE (20:15)
[2020-08-11 20:20] LABS: BACTERIA,URINE FEW /HPF (None Seen); RBC,URINE 0-3 /HPF (0-3); WBC,URINE NONE SEEN /HPF (0-3)
[2020-08-11] MEDS ORDERED: NALOXONE HCL 0.4 MG/ML AMP (NARCAN) IVP PRN (20:30)
[2020-08-11] MEDS ORDERED: HYDROcodone/ACETAMIN 5-325 MG TAB (NORCO/ VICODIN) PO PRN (20:30)
--- NOTE | 2020-08-11 20:30 | NUR ---
PIV STARTED TO RIGHT AC, 20 GUAGE. SECURED WITH TAPE, GOOD BLOOD RETURN AND FLUSHES WITHOUT DIFFICULTIES.
[2020-08-11] MEDS ORDERED: AZITHROMYCIN 500 MG/VIAL (ZITHROMAX) IV ONE (20:34)
[2020-08-11] MEDS: AZITHROMYCIN 500 MG in NS 250 ML IV SCH (20:40)
[2020-08-11] MEDS: PANTOPRAZOLE SODIUM 40 MG/VIAL (PROTONIX) IVP SCH (20:41)
[2020-08-11] MEDS ORDERED: LABETALOL 100 MG/ 20ML VIAL IVP PRN (20:45)
[2020-08-11] MEDS: ALBUTEROL SULFATE 0.083% 2.5 MG/3 ML VIAL.NEB INH PRN (20:52)
[2020-08-11] MEDS: LORazepam 2 MG/ML VIAL IVP PRN (20:58)
[2020-08-11] MEDS: LATANOPROST 2.5 ML DROPS (XALATAN) OP SCH (21:00)
[2020-08-11] MEDS: TAMSULOSIN HCL 0.4 MG CAP PO SCH (21:00)
[2020-08-11] MEDS ORDERED: INSULIN REGULAR, HUMAN 10 UNITS/0.1 ML INJ ONE (21:18)
[2020-08-11] MEDS: INSULIN REGULAR, HUMAN 100 UNITS/ML, 10 ML VIAL (humuLIN R) SUBCUT PRN (21:21)
--- NOTE | 2020-08-11 21:36 | NUR ---
SPOKE TO MD DOUGLAS REGARDING CONTINUED SHORTNESS OF BREATH AND INCREASED AGITATION. NEW ORDER RECEIVED FOR SOLUMEDROL IVP.
[2020-08-11] MEDS ORDERED: methylPREDNISolone SOD SUCC/PF 62.5 MG/ML VIAL ONE (21:37)
--- NOTE | 2020-08-11 21:37 | NUR ---
Dr Edwards pagestan since patient breathing worsening at this time, O2 90 % on ventury mask , wheezing noted.
--- NOTE | 2020-08-11 21:38 | NUR ---
Fluids stopped at this time since patient with SOB and wheezing, notified
--- NOTE | 2020-08-11 21:38 | NUR ---
Solumedrol 125 mg IVP administered at this time, well tolerated.
--- NOTE | 2020-08-11 21:38 | NUR ---
Called pt's power of city attorney, spoke with son Luther, per Son he does not wish pt to be intubated, only compressions and medications can be given , Dr Interiano notified, charge nurse notified.
--- NOTE | 2020-08-11 21:39 | NUR ---
Dr Interiano speaking with Dr Yang (pulmonary) at this time, explaining patient status, per Dr Yang pt needs high flow O2, RT notified
--- NOTE | 2020-08-11 21:40 | NUR ---
Patient will be admitted to care of . Admitted to ICU unit. Will go to room 2. Belongings list completed. Complete and up to date summary report printed. SBAR report to be given at bedside with opportunity for questions.
[2020-08-11] MEDS ORDERED: methylPREDNISolone SOD SUCC/PF 62.5 MG/ML VIAL IVP ONE (21:45)
[2020-08-11 22:00] VITALS: BP_SYST 137
--- NOTE | 2020-08-11 22:00 | NUR ---
ADMITTED TO ICU REPORT RECEIVED FROM RN USING SBAR REPORTING. ALL CARE ASSUMED.
[2020-08-11 22:42] VITALS: BP_SYST 137
[2020-08-11 23:00] VITALS: BP_SYST 135
--- NOTE | 2020-08-11 23:00 | NUR ---
DR BOYD: NOTIFIED OF ABG RESULTS AND UPDATED ON PTS STATUS. NEW ORDERS ACKNOWLEDGED AND CARRIED OUT.
--- NOTE | 2020-08-11 23:04 | NUR ---
PAGED FOR ORDERS DIALED: [phone] SPOKE TO: AUTOMATED EXCHANGE
[2020-08-11] MEDS ORDERED: FUROSEMIDE 40 MG/4 ML VIAL IVP ONE (23:15)
--- NOTE | 2020-08-11 23:21 | NUR ---
PAGED FOR ORDERS DIALED: [phone] SPOKE TO: ZACHARY
--- NOTE | 2020-08-11 23:40 | NUR ---
HIGH ALERT NOTE: Called Dr. Holm at back at 2240 identified within the medical roster to verify physician authenticity.
[2020-08-11] MEDS ORDERED: HYDROmorphone 1 MG INJ. 1 MG/ML CARTRIDGE IVP ONE (23:45)
[2020-08-11] MEDS ORDERED: HYDROmorphone 1 MG INJ. 1 MG/ML CARTRIDGE ONE (23:57)
[2020-08-12] VITALS (24 sets, daily range): BP systolic 96–169
[2020-08-12] MEDS: PIPERACILLIN/TAZO 3.375/DEX-IS 50 ML IV SCH ×4 (00:30→17:57)
--- NOTE | 2020-08-12 02:00 | NUR ---
FAMILY Spoke to patients sonLuther. Update given.
--- NOTE | 2020-08-12 03:00 | NUR ---
FAMILY Spoke to patients sister, update given.
[2020-08-12] MEDS: LORazepam 2 MG/ML VIAL IVP PRN (04:16)
--- NOTE | 2020-08-12 05:08 | NUR ---
PAGED FOR CONSULT NALLELY ESPARZA ORDERING PHYSICIAN: DR. SINGH REASON FOR CONSULT: ABDOMINAL PAIN DIALED: [phone] SPOKE TO: TARYN
--- NOTE | 2020-08-12 05:12 | NUR ---
PAGED FOR CONSULT LAURENCE MURO ORDERING PHYSICIAN: DR. SINGH REASON FOR CONSULT: NSTEMI DIALED: [phone] SPOKE TO: CAROLYN
[2020-08-12 06:01] LABS: BASOPHILS % (AUTO) 0.1 % (0.0-2.0); HEMATOCRIT 41.9 % (36-54); LYMPHOCYTES # (AUTO) 0.4 K/uL (1.0-5.5); LYMPHOCYTES % (AUTO) 1.4 % (20.5-51.5); MEAN CORPUSCULAR HEMOGLOBIN 20 pg (27-31); MEAN CORPUSCULAR HGB CONC 31 % (32-36); MEAN CORPUSCULAR VOLUME 65 fL (79.0-98.0); MONOCYTES # (AUTO) 1.2 K/uL (0.0-1.0); MONOCYTES % (AUTO) 4.6 % (1.7-9.3); NEUTROPHILS # (AUTO) 24.5 K/uL (1.8-7.7); NEUTROPHILS % (AUTO) 93.9 % (40.0-70.0); PLATELET COUNT (AUTO) 236 K/uL (130-430); RED BLOOD CELL COUNT(AUTO) 6.42 MIL/uL (4.2-6.2); RED CELL DISTRIBUTION WIDTH 15.9 % (9.0-15.0); WHITE BLOOD COUNT (AUTO) 26.1 K/uL (4.8-10.8)
[2020-08-12] MEDS: INSULIN REGULAR, HUMAN 100 UNITS/ML, 10 ML VIAL (humuLIN R) SUBCUT PRN ×4 (06:17→21:33)
[2020-08-12 06:19] LABS: ALANINE AMINOTRANSFERASE 23 U/L (12-78); ALBUMIN 3.7 g/dL (3.4-4.8); ANION GAP 14 (5-15); CHLORIDE 101 mmol/L (98-107); CREATININE 1.53 mg/dL (0.55-1.30); GLUCOSE 376 mg/dL (70-99); POTASSIUM 4.5 mmol/L (3.5-5.1); SODIUM SERUM 137 mmol/L (136-145); TOTAL BILIRUBIN 1.1 mg/dL (0.0-1.0); UREA NITROGEN, BLOOD 28 mg/dL (8-21)
--- NOTE | 2020-08-12 07:17 | NUR ---
Nutrition Update Yeyo Scale 13 noted. Pt admitted for Multiorgan failure, Sepsis, NSTEMI Diet: Clear liquid BMI: 26.1 kg/m2 RD to follow per nutrition care standards.
--- NOTE | 2020-08-12 07:23 | NUR ---
CLOSING NOTE: REPORT GIVEN TO RN USING SBAR REPORT. SAFETY PRECAUTIONS REINFORCED.
--- NOTE | 2020-08-12 07:30 | NUR ---
Opening Note Received plan of care via sbar from endorsing RN.
[2020-08-12 07:55] LABS: ASPARTATE AMINOTRANSFERASE 45 U/L (10-37)
--- NOTE | 2020-08-12 08:48 | NUR ---
Called Dr. Alcantar and reported echo EF 23%.
[2020-08-12] MEDS: predniSONE 20 MG TABLET PO SCH (09:00)
[2020-08-12] MEDS: ASPIRIN 81 MG TAB.CHEW PO SCH (09:00)
[2020-08-12] MEDS: FINASTERIDE 5 MG TABLET (PROSCAR) PO SCH (09:00)
[2020-08-12] MEDS: OXYBUTYNIN CHLORIDE 5 MG TABLET PO SCH (09:00)
[2020-08-12] MEDS: ISOSORBIDE MONONITRATE 30 MG TAB.ER.24H PO SCH (09:00)
[2020-08-12] MEDS: ATORVASTATIN 20 MG TABLET PO SCH (09:00)
--- NOTE | 2020-08-12 09:04 | NUR ---
Dr. Gómez at bedside. Provided patient update. No new orders.
--- NOTE | 2020-08-12 09:17 | NUR ---
Dr. Basurto at bedside. Provided patient update. Received order to place an NG tube on low intermittent suction. Addendum: 08/12/20 at 0946 by Elias Murphy RN Clarified with Dr. Galvez that we are to hold meds.
[2020-08-12] MEDS: PANTOPRAZOLE SODIUM 40 MG/VIAL (PROTONIX) IVP SCH (09:49)
[2020-08-12] MEDS: INSULIN GLARGINE 100 UNITS/ML 10 ML VIAL SUBCUT SCH (09:50)
[2020-08-12] MEDS ORDERED: FAMOTIDINE PF 20 MG/2 ML VIAL IVP ONE (10:15)
--- NOTE | 2020-08-12 13:17 | NUR ---
Called Dr. Basurto and reported CT abd/pelvis impression. Received order to start flexiseal and water enemas.
[2020-08-12] MEDS ORDERED: SODIUM PHOSPHATE,MONO-DIBASIC 133 ML ENEMA RC ONE (13:30)
--- NOTE | 2020-08-12 14:30 | NUR ---
Flexiseal placed with second RN at bedside. Secured flexiseal and inflated balloon with 50ml of fluid. Patient tolerated without complaint or complication.
--- NOTE | 2020-08-12 16:33 | NUR ---
Dr. Alcantar at bedside. Provided patient update. Received order to draw troponin in the AM.
--- NOTE | 2020-08-12 19:30 | NUR ---
Received report and assumed care. Patient resting in bed with eyes closed. easy to arouse with light stimuli. Unable to assess mentation as patient does not verbalize coherently. repositioned for comfort. will continue to monitor.
[2020-08-12] MEDS: AZITHROMYCIN 500 MG in NS 250 ML IV SCH (20:54)
[2020-08-12] MEDS: LATANOPROST 2.5 ML DROPS (XALATAN) OP SCH (21:00)
[2020-08-12] MEDS: FAMOTIDINE PF 20 MG/2 ML VIAL IVP SCH (21:10)
[2020-08-12] MEDS: TAMSULOSIN HCL 0.4 MG CAP PO SCH (21:11)
--- NOTE | 2020-08-12 23:15 | NUR ---
Attempt to place NGT not successful as three nurses tried. MD will be notified that patient is currently not on LIS as ordered. Will notify next shift nurse during report.
[2020-08-13] VITALS (23 sets, daily range): BP systolic 85–147
[2020-08-13 05:38] LABS: INR 1.5 (0.80-1.20); PROTHROMBIN TIME 15.5 SECS (9.5-12.5)
[2020-08-13 05:39] LABS: BASOPHILS % (AUTO) 0.2 % (0.0-2.0); HEMATOCRIT 43.1 % (36-54); HEMOGLOBIN 13.6 g/dL (14.0-18.0); LYMPHOCYTES # (AUTO) 0.7 K/uL (1.0-5.5); LYMPHOCYTES % (AUTO) 4.6 % (20.5-51.5); MEAN CORPUSCULAR HEMOGLOBIN 20 pg (27-31); MEAN CORPUSCULAR HGB CONC 32 % (32-36); MEAN CORPUSCULAR VOLUME 65 fL (79.0-98.0); MONOCYTES # (AUTO) 1.3 K/uL (0.0-1.0); MONOCYTES % (AUTO) 9.1 % (1.7-9.3); NEUTROPHILS # (AUTO) 12.5 K/uL (1.8-7.7); NEUTROPHILS % (AUTO) 86.1 % (40.0-70.0); PLATELET COUNT (AUTO) 166 K/uL (130-430); RED BLOOD CELL COUNT(AUTO) 6.67 MIL/uL (4.2-6.2); RED CELL DISTRIBUTION WIDTH 15.9 % (9.0-15.0); WHITE BLOOD COUNT (AUTO) 14.5 K/uL (4.8-10.8)
[2020-08-13 05:41] LABS: ALANINE AMINOTRANSFERASE 386 U/L (12-78); ALBUMIN 3.2 g/dL (3.4-4.8); ANION GAP 15 (5-15); ASPARTATE AMINOTRANSFERASE 585 U/L (10-37); CALCIUM 8.5 mg/dL (8.4-11.0); CHLORIDE 107 mmol/L (98-107); CREATININE 2.62 mg/dL (0.55-1.30); GLUCOSE 140 mg/dL (70-99); LIPASE 37 U/L (73-393); POTASSIUM 4.4 mmol/L (3.5-5.1); SODIUM SERUM 144 mmol/L (136-145); TOTAL BILIRUBIN 1.8 mg/dL (0.0-1.0); UREA NITROGEN, BLOOD 58 mg/dL (8-21)
[2020-08-13] MEDS: PIPERACILLIN/TAZO 3.375/DEX-IS 50 ML IV SCH ×4 (05:42→18:00)
--- NOTE | 2020-08-13 06:30 | NUR ---
Received report from lab Troponin 2.044 Dr Dee covering for Dr Nava paged; waiting for call back.
--- NOTE | 2020-08-13 07:20 | NUR ---
RT NOTES 0720 TITRATED FIO2 TO 28%. SATURATION 96. NO DISTRESS NOTED. WILL CONTINUE TO MONITOR PT.
--- NOTE | 2020-08-13 07:40 | NUR ---
OPENING NOTES PT RESTING IN BED. CHEST RISE AND FALL NOTED. PT ON BIPAP, TOLERATING WELL. IV LINES INTACT AND PATENT, NO SIGNS OF INFILTRATION NOTED. SOFT BILATERAL WRIST RESTRAINTS IN PLACE, NO SIGNS OF INJURY NOTED. ARNDT CATHETER INTACT AND DRAINING. FLEXISEAL INTACT. NO ACUTE DISTRESS NOTED. ALL NEEDS MET. CALL LIGHT IN REACH. FALL AND ASPIRATION PRECAUTIONS IN PLACE.
[2020-08-13] MEDS: INSULIN GLARGINE 100 UNITS/ML 10 ML VIAL SUBCUT SCH (09:00)
[2020-08-13] MEDS: predniSONE 20 MG TABLET PO SCH (09:00)
[2020-08-13] MEDS: FINASTERIDE 5 MG TABLET (PROSCAR) PO SCH (09:00)
[2020-08-13] MEDS: ISOSORBIDE MONONITRATE 30 MG TAB.ER.24H PO SCH (09:00)
[2020-08-13] MEDS: OXYBUTYNIN CHLORIDE 5 MG TABLET PO SCH (09:00)
[2020-08-13] MEDS: ASPIRIN 81 MG TAB.CHEW PO SCH (09:00)
[2020-08-13] MEDS: ATORVASTATIN 20 MG TABLET PO SCH (09:00)
--- NOTE | 2020-08-13 09:11 | NUR ---
SPOKE TO DR. KHAN AT NURSE'S STATION REGARDING PT'S ELEVATED TROPONIN LEVEL, DR. KHAN VERBALIZED UNDERSTANDING. NO NEW ORDERS RECEIVED AT THIS TIME.
[2020-08-13] MEDS: PANTOPRAZOLE SODIUM 40 MG/VIAL (PROTONIX) IVP SCH (09:20)
[2020-08-13] MEDS: FAMOTIDINE PF 20 MG/2 ML VIAL IVP SCH ×2 (09:21→21:44)
--- NOTE | 2020-08-13 09:35 | NUR ---
SEEN BY DR. GTZ AT BEDSIDE. Addendum: 08/13/20 at 1103 by Nadiya Gtaes RN DR. GTZ AWARE OF NIGHT NURSES UNABLE TO INSERT NG TUBE DESPITE MULTIPLE ATTEMPTS. NO NEW ORDERS RECEIVED AT THIS TIME.
--- NOTE | 2020-08-13 09:43 | NUR ---
spoke to Dr. Basurto regarding pt's diet orders at nurse's station. received orders, verified, and carried out.
--- NOTE | 2020-08-13 11:09 | NUR ---
SPOKE TO DR. SINGH AT NURSE'S STATION, VERBALIZED TO MD THE ATTEMPTS OF INSERTING NG TUBE AND UNABLE TO INSERT IT IN PROPER PLACE, VERBALIZED THAT PT'S BLOOD SUGAR 134 THIS AM HELD LANTUS THIS AM DUE TO PT BEING NPO , MD VERBALIZED UNDERSTANDING. RECEIVED ORDERS, VERIFIED, AND CARRIED OUT WITH JASS KNIGHT.
[2020-08-13] MEDS ORDERED: DEXTROSE 50% JECT 50 ML DISP.SYRIN IVP PRN (11:15)
--- NOTE | 2020-08-13 11:56 | NUR ---
Updates/Consent Obtained consent for PICC line placement from pt's son, Luther Schumacher, witnessed with second RN. Updates given to Luther regarding pt.
--- NOTE | 2020-08-13 12:44 | NUR ---
routine meds administered as ordered per md, education verbalized, tolerated well.
[2020-08-13 14:08] LABS: PHOSPHORUS 4.2 mg/dL (2.7-4.5)
--- NOTE | 2020-08-13 15:45 | NUR ---
PICC LINE INSERTED BY PICC LINE NURSE, AWAITING FOR CHEST XR.
--- NOTE | 2020-08-13 16:45 | NUR ---
Dietitian Recommendations * Recommend PPN D20%, AA5.4% at 85 ml/hr (goal rate), IL20% at 10 ml/hr daily via peripheral line Provides: 1394 kcal/day, 55 gm protein/day, 2180 ml total volume/day, and GIR: 2.2 gm CHO/kg/min Meets: 93% of lower end of estimated caloric needs and 85% of lower end of estimated protein needs -OR- TPN D40%, AA5.4% at 65 ml/hr, IL20% at 10 ml/hr daily via central line Provides: 1806 kcal/day, 66 gm protein/day, 1800 ml total volume/day, and GIR: 3.3 gm CHO/kg/min Meets: 96% of upper end of estimated caloric needs and 102% of lower end of estimated protein needs LP, RD Please refer to Nutrition Assessment for details. Addendum: 08/13/20 at [address] Amended: Links added.
--- NOTE | 2020-08-13 18:05 | NUR ---
iv abx administered as ordered per , alida done, tolerated well. jackie andersen will administer insulin as ordered per .
[2020-08-13] MEDS: INSULIN REGULAR, HUMAN 100 UNITS/ML, 10 ML VIAL (humuLIN R) SUBCUT PRN (18:23)
--- NOTE | 2020-08-13 19:38 | NUR ---
CLOSING NOTES PT RESTING IN BED. CHEST RISE AND FALL NOTED. PT ON BIPAP, TOLERATING WELL. IV LINES INTACT AND PATENT, NO SIGNS OF INFILTRATION NOTED. SOFT BILATERAL WRIST RESTRAINTS IN PLACE, NO SIGNS OF INJURY NOTED. ARNDT CATHETER INTACT AND DRAINING. NO ACUTE DISTRESS NOTED. ALL NEEDS MET. CALL LIGHT IN REACH. FALL AND ASPIRATION PRECAUTIONS IN PLACE. BED LOCKED AND IN LOWEST POSITION. BED ALARM ON. ENDORSED CARE TO JASS QUISPE.
--- NOTE | 2020-08-13 19:40 | NUR ---
Opening note Received report and assumed care. Patient on Bipap 05/02 BP16 FIO2 28% and tolerating well. No signs of distress noted. Requires repositioning for comfort. Continue on BL wrist restraints. will continue to monitor.
[2020-08-13] MEDS: AZITHROMYCIN 500 MG in NS 250 ML IV SCH (20:04)
[2020-08-13] MEDS: SODIUM ACETATE IV SCH ×7 (20:26)
[2020-08-13] MEDS: [UNRECOGNIZED DRUG - OTHER] IV SCH ×7 (20:26)
[2020-08-13] MEDS: POTASSIUM ACETATE IV SCH ×7 (20:26)
[2020-08-13] MEDS: TPN PERIPHERAL IV SCH ×7 (20:26)
[2020-08-13] MEDS: FAT EMULSIONS 250 ML IV SCH (20:27)
[2020-08-13] MEDS ORDERED: *TPN PER PHARMACY XX PRN (21:00)
[2020-08-13] MEDS: LATANOPROST 2.5 ML DROPS (XALATAN) OP SCH (21:00)
--- NOTE | 2020-08-13 21:00 | NUR ---
TPN and lipids started via Picc line as per MD orders and pharmacy.
[2020-08-13] MEDS: TAMSULOSIN HCL 0.4 MG CAP PO SCH (21:44)
[2020-08-14] VITALS (25 sets, daily range): BP systolic 64–121
[2020-08-14] MEDS: PIPERACILLIN/TAZO 3.375/DEX-IS 50 ML IV SCH ×5 (00:23→23:22)
[2020-08-14] MEDS: INSULIN REGULAR, HUMAN 100 UNITS/ML, 10 ML VIAL (humuLIN R) SUBCUT PRN ×5 (00:37→23:28)
[2020-08-14 06:21] LABS: BASOPHILS % (AUTO) 0.1 % (0.0-2.0); EOSINOPHILS % (AUTO) 0.1 % (0.0-4.0); HEMATOCRIT 38.9 % (36-54); HEMOGLOBIN 12.3 g/dL (14.0-18.0); LYMPHOCYTES # (AUTO) 0.5 K/uL (1.0-5.5); LYMPHOCYTES % (AUTO) 4.6 % (20.5-51.5); MEAN CORPUSCULAR HEMOGLOBIN 21 pg (27-31); MEAN CORPUSCULAR HGB CONC 32 % (32-36); MEAN CORPUSCULAR VOLUME 65 fL (79.0-98.0); MONOCYTES # (AUTO) 0.8 K/uL (0.0-1.0); MONOCYTES % (AUTO) 7.2 % (1.7-9.3); NEUTROPHILS # (AUTO) 9.8 K/uL (1.8-7.7); PLATELET COUNT (AUTO) 162 K/uL (130-430); RED BLOOD CELL COUNT(AUTO) 6.03 MIL/uL (4.2-6.2); RED CELL DISTRIBUTION WIDTH 15.6 % (9.0-15.0); WHITE BLOOD COUNT (AUTO) 11.2 K/uL (4.8-10.8)
[2020-08-14 06:40] LABS: ALANINE AMINOTRANSFERASE 907 U/L (12-78); ALBUMIN 2.3 g/dL (3.4-4.8); ANION GAP 23 (5-15); ASPARTATE AMINOTRANSFERASE 1341 U/L (10-37); CALCIUM 7.8 mg/dL (8.4-11.0); CHLORIDE 104 mmol/L (98-107); CREATININE 5.98 mg/dL (0.55-1.30); GLUCOSE 341 mg/dL (70-99); LIPASE 49 U/L (73-393); PHOSPHORUS 7.8 mg/dL (2.7-4.5); POTASSIUM 4.9 mmol/L (3.5-5.1); SODIUM SERUM 142 mmol/L (136-145); TOTAL BILIRUBIN 1.9 mg/dL (0.0-1.0)
--- NOTE | 2020-08-14 07:30 | NUR ---
Opening Note Received plan of care via sbar from endorsing RN.
[2020-08-14 07:58] LABS: UREA NITROGEN, BLOOD 104 mg/dL (8-21)
--- NOTE | 2020-08-14 08:27 | NUR ---
Dr. Gómez at bedside. Provided patient update including elevated BUN and Creatinine. Patient has made only 30 cc of urine in PM shift. Awaiting for attending for nephro consult.
[2020-08-14] MEDS: FINASTERIDE 5 MG TABLET (PROSCAR) PO SCH (09:00)
[2020-08-14] MEDS: ASPIRIN 81 MG TAB.CHEW PO SCH (09:00)
[2020-08-14] MEDS: OXYBUTYNIN CHLORIDE 5 MG TABLET PO SCH (09:00)
[2020-08-14] MEDS: predniSONE 20 MG TABLET PO SCH (09:00)
[2020-08-14] MEDS: ATORVASTATIN 20 MG TABLET PO SCH (09:00)
[2020-08-14] MEDS: ISOSORBIDE MONONITRATE 30 MG TAB.ER.24H PO SCH (09:00)
[2020-08-14] MEDS: FAMOTIDINE PF 20 MG/2 ML VIAL IVP SCH ×2 (09:13→20:23)
[2020-08-14] MEDS: PANTOPRAZOLE SODIUM 40 MG/VIAL (PROTONIX) IVP SCH (09:13)
[2020-08-14] MEDS: INSULIN GLARGINE 100 UNITS/ML 10 ML VIAL SUBCUT SCH (09:21)
--- NOTE | 2020-08-14 09:30 | NUR ---
Dr. Nava at bedside. Provided patient update. No new orders.
--- NOTE | 2020-08-14 10:50 | NUR ---
Dr. Mullins at bedside. Provided patient update. Received order to consult nephrology, Dr. Damon.
--- NOTE | 2020-08-14 11:00 | NUR ---
Called Dr. Damon with a consult, spoke with Guadalupe from doctors office
--- NOTE | 2020-08-14 13:54 | NUR ---
RT NOTES 1354 Tried pt putting on High flow 45L/50% FIO2, pt lasted only for 15-20 mins, pt started to have WOB and increased RR. RN Elias aware. will continue to monitor pt.
--- NOTE | 2020-08-14 16:21 | NUR ---
Dr. Gudino aware of consult, for dialysis catheter placement
--- NOTE | 2020-08-14 17:36 | NUR ---
rt notes 3915 Switched pt bipap mask to Full face mask, seen red indentation. RN Elias aware of changes. no resp distress noted. will continue to monitor pt.
--- NOTE | 2020-08-14 19:15 | NUR ---
change of shift.pt.presents isolation status;standard.pt.presents affect;lethargic.loc;confused.pt.presents bi-pap o2 therapy. mode.settings:i/e;12/5,fio2%=28%,r/r;16.i attempted to awaken.pt.will open eyes immediately return to lethargic status. unable to maintain awake/alert loc status.pt.presents picc line;rt.bicept.intact;patent:iv fluids;ns-flush,tpn/lipids infusing pt.presents gardner cath.intact;patent.pt.presents renal insufficency;urine character icteric hue;scant amount.general status stable.respiratory status stable.02=-sat%=96%.call light w/in access of the pt.
--- NOTE | 2020-08-14 20:00 | NUR ---
pt.assessed.v/s assessed note b/p status.note heart rate;s.tachycardia.o2-sat%=98%.bi-pap settings reviewed.i have attended to oral care/suction.picc intact;patent iv fluids,tpn/lipids infusing.i have administered zithromax;abx ivpb 2000p dose.gardner cath intact;patent urine content present;scant volume.pt.assessed for cleanliness.pt.repositioned.general status stable.respiratory status stable.call light placed w/in access of the pt. Addendum: 08/14/20 at 2131 by Luis Fletcher RN per flacc pain mgx pt.absent facial grimaces/body posturing.
[2020-08-14] MEDS: AZITHROMYCIN 500 MG in NS 250 ML IV SCH (20:08)
[2020-08-14] MEDS: TAMSULOSIN HCL 0.4 MG CAP PO SCH (20:23)
[2020-08-14] MEDS: LATANOPROST 2.5 ML DROPS (XALATAN) OP SCH (20:23)
[2020-08-14] MEDS: SODIUM ACETATE IV SCH ×14 (20:36→20:52)
[2020-08-14] MEDS: CALCIUM GLUCONATE IV SCH ×7 (20:36)
[2020-08-14] MEDS: [UNRECOGNIZED DRUG - OTHER] IV SCH ×7 (20:36)
[2020-08-14] MEDS: TPN PERIPHERAL IV SCH ×14 (20:36→20:52)
[2020-08-14] MEDS: FAT EMULSIONS 250 ML IV SCH (20:37)
[2020-08-14] MEDS: POTASSIUM ACETATE IV SCH ×7 (20:52)
[2020-08-14] MEDS: [UNRECOGNIZED DRUG - OTHER] IV SCH ×7 (20:52)
--- NOTE | 2020-08-14 21:00 | NUR ---
2100p medications administered.pepcid ivp via the picc line.xalatan opth med not located;not administered.tpn/lipids administered via the picc line;tpn;contains regular insulin addition:15-units.patel mejia reviewed/co-signed the medication per protocol. per flacc pain mgx pt.absent facial grimaces/body posturing.call light w/in access of the pt.
[2020-08-14] MEDS: LORazepam 2 MG/ML VIAL IVP PRN (21:36)
--- NOTE | 2020-08-14 21:40 | NUR ---
i have been apprised per mt-community liaison officer;titi r/e: the pt's h/r.140bmp.i have reviewed emar med list.no h/r medication order prn.[id number] is ordered.i have conferred w/ lisy;rn/chg.lisy has stated to administer the ativan 1mg ivp re-assess thep pt's status per protocol.i have adm\inistyr ativan;21mg ivp.to re-ases the pt;'s status per protocol.
--- NOTE | 2020-08-14 22:00 | NUR ---
pt.assessed.v/s assessed values note h/r;120bmp,b/p status w/in normal limits.o2-sat%=98%.picc line intact;patent iv fluids; ns-flush,tpn/lipids infusing.gardner cath intact;patent urine content present;scant volume.i have attended to the oral care/suction.pt.assessed for cleanliness.pt.repositioned.call light placed w/in access of the pt.
[2020-08-15] VITALS (24 sets, daily range): BP systolic 84–142
--- NOTE | 2020-08-15 | NUR ---
pt.assessed.v/s assessed values:note hr;133bmp.note b/p status w/in normal limits.i have attened to the oral care/suction. o2-sat%=98%.per flacc;pain mgx,pt.absent facial grimaces/body posturing.picc line intact;patent iv fluids:ns-flush infusing. tpn/ lipids infusing.i have administered zosyn;abx ivpb midnight dose.i have assessed the blood glucose;vaule;293/mg/dl.i have administered insulin;regular;6-units per the sliding scale parameters.pt.assessed for cleanliness.pt.repositioned.general status stable.respiratory status stable;unlabored.call light placed w/in access of the pt.
--- NOTE | 2020-08-15 00:45 | NUR ---
;a present.assessed the pt.inquired re:pt's general status. ordered timothy cath tray,us apparatus@bedside in the am: 08/15/20.
--- NOTE | 2020-08-15 02:00 | NUR ---
pt.assessed.v/s assessed values;note h/r:123bmp,b/p status w/in normal limits.o2-sat%=96%.i have attended to the oral care/suction. picc line intact;patent iv fluids;ns-flush,tpn/lipids infusing.per flacc pain mgx pt.absent facial grimaces/body posturing.pt.assessed pt.assessed for cleanliness.pt.repositioned.call light placed w/in access of the pt.
--- NOTE | 2020-08-15 04:00 | NUR ---
pt.assessed.v/s assessed values:note h/r;124bmp,b/p status win normal limits.o2-sat%=96%.per flacc pain mgx pt.absent facial grimaces/body posturing.picc line intact;patent iv fluids:ns-flush,tpn/lipids infusing.gardner cath intact;patent urine content present;scant volume.pt.assessed for cleanliness.pt.repositioned.general status stable.respiratory status stable.call light placed w/in access of the pt.
[2020-08-15] MEDS: PIPERACILLIN/TAZO 3.375/DEX-IS 50 ML IV SCH ×4 (05:14→23:37)
[2020-08-15 05:50] LABS: ALANINE AMINOTRANSFERASE 439 U/L (12-78); ALBUMIN 1.9 g/dL (3.4-4.8); ANION GAP 21 (5-15); CALCIUM 7.9 mg/dL (8.4-11.0); CHLORIDE 103 mmol/L (98-107); GLUCOSE 262 mg/dL (70-99); LACTATE DEHYDROGENASE 597 U/L (85-227); PHOSPHORUS 6.3 mg/dL (2.7-4.5); POTASSIUM 4.5 mmol/L (3.5-5.1); SODIUM SERUM 143 mmol/L (136-145); TOTAL BILIRUBIN 1.6 mg/dL (0.0-1.0)
[2020-08-15 06:07] LABS: CREATININE 7.94 mg/dL (0.55-1.30); UREA NITROGEN, BLOOD 137 mg/dL (8-21)
[2020-08-15 06:21] LABS: ASPARTATE AMINOTRANSFERASE 333 U/L (10-37)
[2020-08-15 06:27] LABS: INR 1.2 (0.80-1.20); PROTHROMBIN TIME 11.8 SECS (9.5-12.5)
[2020-08-15] MEDS: INSULIN REGULAR, HUMAN 100 UNITS/ML, 10 ML VIAL (humuLIN R) SUBCUT PRN ×4 (06:29→23:39)
[2020-08-15 06:32] LABS: EOSINOPHILS % (AUTO) 0.5 % (0.0-4.0); HEMATOCRIT 35.6 % (36-54); HEMOGLOBIN 11.5 g/dL (14.0-18.0); LYMPHOCYTES # (AUTO) 0.3 K/uL (1.0-5.5); LYMPHOCYTES % (AUTO) 2.8 % (20.5-51.5); MEAN CORPUSCULAR HEMOGLOBIN 21 pg (27-31); MEAN CORPUSCULAR HGB CONC 32 % (32-36); MEAN CORPUSCULAR VOLUME 63 fL (79.0-98.0); MONOCYTES % (AUTO) 9.9 % (1.7-9.3); NEUTROPHILS # (AUTO) 8.5 K/uL (1.8-7.7); NEUTROPHILS % (AUTO) 86.8 % (40.0-70.0); PLATELET COUNT (AUTO) 184 K/uL (130-430); RED BLOOD CELL COUNT(AUTO) 5.64 MIL/uL (4.2-6.2); RED CELL DISTRIBUTION WIDTH 15.8 % (9.0-15.0); WHITE BLOOD COUNT (AUTO) 9.8 K/uL (4.8-10.8)
--- NOTE | 2020-08-15 06:39 | NUR ---
pt.assessed.v/s assessed values;hr:124bmp.b/p status wnl.o2-sat%=96%.pt.assessed for cleanliness.pt.cleaned/repositioned. tap water enema;#2/3 administered.picc line intact;patent iv fluids:ns-flush,tpn/lipids infusing.i have administered zosyn;abx ivpb 0600a dose.blood glucose assessed value;256mg/dl.i have administered insulin;regular;6-units per sliding scale parameters.i have weighed the pt;2/t renal status.per flacc pain mgx pt.absent facial grimaces/body posturing.call light placed w/in access of the pt.
[2020-08-15 06:45] LABS: TOTAL IRON BIND. CAPACITY 148 ug/dL (250-450)
--- NOTE | 2020-08-15 07:15 | NUR ---
OPENING NOTES: REPORT RCVD FROM NOC NURSE, PATIENT STABLE IN NO ACUTE DISTRESS AND OR DISCOMFORT. ALL SAFETY PRECAUTIONS IN PLACE. BED IN LOWEST LOCKED POSITION.
--- NOTE | 2020-08-15 08:12 | NUR ---
LUIS SIMPSON: DR. ULISSES SMITH MD AT BEDSIDE, VERBAL REPORT GIVEN, NO NEW ORDERS.
[2020-08-15] MEDS ORDERED: HEPARIN SODIUM, PORCINE 10,000 UNITS/ 10 ML VIAL MC ONE (08:15)
--- NOTE | 2020-08-15 08:15 | NUR ---
PAGED CARDIAC MD: PAGED, PENDING RETURN CALL.
--- NOTE | 2020-08-15 08:34 | NUR ---
AT BEDSIDE: MD BOYD AT BEDSIDE, NEW ORDERS RC'VD. ORDERS TRANSCRIBED.
--- NOTE | 2020-08-15 08:59 | NUR ---
SPOKE WITH DR. KOEHLER: SPOKE WITH MD, AWARE OF NEW ORDERS.
[2020-08-15] MEDS: AMIODARONE HCL 450 MG in D5W 241 ML IV SCH ×2 (09:09→18:04)
[2020-08-15] MEDS: ISOSORBIDE MONONITRATE 30 MG TAB.ER.24H PO SCH (09:17)
[2020-08-15] MEDS: predniSONE 20 MG TABLET PO SCH (09:17)
[2020-08-15] MEDS: FAMOTIDINE PF 20 MG/2 ML VIAL IVP SCH ×2 (09:17→20:21)
[2020-08-15] MEDS: ASPIRIN 81 MG TAB.CHEW PO SCH (09:17)
[2020-08-15] MEDS: ATORVASTATIN 20 MG TABLET PO SCH (09:17)
[2020-08-15] MEDS: OXYBUTYNIN CHLORIDE 5 MG TABLET PO SCH (09:17)
[2020-08-15] MEDS: FINASTERIDE 5 MG TABLET (PROSCAR) PO SCH (09:18)
[2020-08-15] MEDS: INSULIN GLARGINE 100 UNITS/ML 10 ML VIAL SUBCUT SCH (09:19)
[2020-08-15] MEDS ORDERED: AMIODARONE HCL 150 MG in D5W 100 ML IV ONE (09:30)
[2020-08-15] MEDS ORDERED: BISACODYL 10 MG/SUPPOSITORY RC PRN (10:00)
--- NOTE | 2020-08-15 10:13 | NUR ---
ABG RESULTS: MD BOYD AWARE OF ABG RESULTS.
--- NOTE | 2020-08-15 11:02 | NUR ---
SAMANTHA: AT BEDSIDE, VERBAL REPORT GIVEN, MD CALLED AND SPOKE WITH SON OVER PHONE, GAVE UPDATE, ALL QUESTIONS ANSWERED AT THIS TIME.
[2020-08-15] MEDS ORDERED: HEPARIN SODIUM,PORCINE 5,000 UNITS/ML VIAL MC ONE ×2 (11:45→16:45)
[2020-08-15] MEDS ORDERED: LIDOCAINE 2%, 20 ML MDV ONE (11:55)
--- NOTE | 2020-08-15 12:00 | NUR ---
DR. HALL: MD AT BEDSIDE INSERTING DOUBLE LUMEN, STERILE TECHNIQUE, PATIENT TOLERATED WELL WITH NO ADVERSE REACTIONS. SITE COVERED WITH TRANSPARENT DRESSING.
--- NOTE | 2020-08-15 12:32 | NUR ---
SON (SIA) SPOKE WITH SON, AWARE HE IS ALLOWED TO COME AND VISIT PATIENT PER PARTNER INTEGRATION PLANNER.
[2020-08-15] MEDS: PHENYLEPHRINE HCL 50 MG in NS 245 ML IV PRN (12:46)
--- NOTE | 2020-08-15 13:08 | NUR ---
SIA (SON) SON AT BEDSIDE, ALL QUESTIONS ANSWERED AT THIS TIME.
--- NOTE | 2020-08-15 14:30 | NUR ---
BELONGINGS: ALL PATIENT BELONGINGS RELEASED TO THE SON (SIA) ITEMS CONFIRMED AND DOCUMENTATION SIGNED AND PLACED INTO CHART.
--- NOTE | 2020-08-15 14:48 | NUR ---
Nutrition F/U RD reviewed pt's current EMR record including diet Hx, physician notes, nursing notes, pertinent labs/meds/procedures, care trends, and care activity. Admission Dx: Multiorgan failure, sepsis, NSTEMI PMH: chronic renal failure, DM, CAD s/p 4-vessel bypass, urinary retention, and HLD per physician notes Pt also found w/ renal failure per physician notes SARS-CoV-2 Ag (Rapid) Negative 08/11 Current Diet Order/Nutrition Support: NPO x2 days & TPN D30%, AA5.4% at 53 ml/hr, IL20% at 5 ml/hr via central line TPN Provides: 1025 kcal/day, 34 gm protein/day, 1392 ml free water/day, and GIR: 2.1 gm CHO/kg/min TPN Meets: 68% of lower end of estimated caloric needs and 52% of lower end of estimated protein needs Subjective Info: Pt's son was at bedside at time of RD rounds. RN reported that pt is not doing well. Per EMR review, surgeon placed double lumen this morning; pt is confused/disoriented on BiPAP, not responding, poor prognosis noted; TPN/PPN Intakes: 300 ml 08/15; abd is distended, firm, and hypoactive; no BM noted since 08/12; Yeyo scale: 11, no PIs noted. Current TPN support is appropriate at this time. Pertinent Medications: pepcid, piperacillin/tazobactam IV, ativan, SSI, prednisone, imdur, lantus Pertinent Labs: WBC 9.8 WNL, BG 262 H, POC BG 237 H, Lactic acid 4.4 H (08/13), BUN 137 H, CRE 7.94 H Ht: 5'2"/62" Wt: 143#/64 kg (08/13) New Wt: 141#/64 kg (08/15) -- 2# wt loss within 2 days, likely r/t renal failure Body Mass Index: 26.15 kg/m2 %IBW: 121 [place]/Adjusted Body Weight: IBW: 118#/54 kg Estimated Energy Expenditure (kcals/day) 4661-9802 kcal/day (MSJ x 1.2-1.5 CBW d/t sepsis) Estimated Protein Required (g/day) 65-78 gm/day (1-1.2 gm/kg CBW d/t ARF, geriatric age) Estimated Fluid Required (l/day) Per physician note d/t ARF Problem/Etiology/Signs/Symptoms Increased nutritional needs related to hypermetabolic process as evidenced by estimated nutritional requirements for sepsis and multiorgan failure. *ongoing Altered nutrition-related labs related to endocrine and renal dysfunction as evidenced by abnormal BG, POC BG, BUN, and CRE lab values. *ongoing Expected Outcomes/Goals - Monitor provision of TPN/PPN support w/ goal of pt meeting at least 50% of estimated nutritional needs, labs trending WNL, normal GI function, and skin integrity/wt maintenance Dietitian Recommendations * Consider TPN D30%, AA5.4% at 75 ml/hr (goal rate), IL20% at 5 ml/hr daily via peripheral line Provides: 1354 kcal/day, 49 gm protein/day, 1920 ml total volume/day, and GIR: 2.9 gm CHO/kg/min Meets: 90% of lower end of estimated caloric needs and 75% of lower end of estimated protein needs Follow Up High Risk: F/U in 2-3 days Addendum: 08/15/20 at [address] CORRECTION: Dietitian Recommendations * Consider TPN D30%, AA5.4% at 75 ml/hr (goal rate), IL20% at 5 ml/hr daily via central line Provides: 1354 kcal/day, 49 gm protein/day, 1920 ml total volume/day, and GIR: 2.9 gm CHO/kg/min Meets: 90% of lower end of estimated caloric needs and 75% of lower end of estimated protein needs
--- NOTE | 2020-08-15 15:18 | NUR ---
Dietitian Recommendations * Consider TPN D30%, AA5.4% at 75 ml/hr (goal rate), IL20% at 5 ml/hr daily via central line Provides: 1354 kcal/day, 49 gm protein/day, 1920 ml total volume/day, and GIR: 2.9 gm CHO/kg/min Meets: 90% of lower end of estimated caloric needs and 75% of lower end of estimated protein needs LP, RD Please refer to Nutrition F/U for details.
--- NOTE | 2020-08-15 16:42 | NUR ---
DIALYSIS: NURSE AT BEDSIDE, RT IJ HORACIO CATHETER ACCESSED, PATIENT TOLERATING AT THIS TIME.
--- NOTE | 2020-08-15 17:00 | NUR ---
DAUGHTERS: UPDATE GIVEN OVER PHONE TO BOTH DAUGHTERS, SWETHA AND MARTITA, ALL QUESTIONS ANSWERED AT THIS TIME.
--- NOTE | 2020-08-15 18:00 | NUR ---
DIALYSIS COMPLETED: PATIENT GAINED 800 ML OF FLUID FOR BLOOD PRESSURE SUPPORT. PATIENT REMAINS ON FABRICIO FOR BP
--- NOTE | 2020-08-15 19:13 | NUR ---
CLOSING NOTES: REPORT GIVEN TO NOC NURSE, ALL CARES ENDORSED.
--- NOTE | 2020-08-15 19:25 | NUR ---
PM SHIFT ASSESSMENT Pt is obtunded, on BIPAP with SP02 above 94%. Afib on the monitor. Skin warm and dry. SILKE PICCLINE with IVF infusing. Govea catheter in place and draining to gravity. Safety precautions in place, call light within reach. Will continue to monitor.
[2020-08-15] MEDS: AZITHROMYCIN 500 MG in NS 250 ML IV SCH (20:21)
[2020-08-15] MEDS: SODIUM ACETATE IV SCH ×15 (20:24→20:25)
[2020-08-15] MEDS: CALCIUM GLUCONATE IV SCH ×15 (20:24→20:25)
[2020-08-15] MEDS: TPN PERIPHERAL IV SCH ×15 (20:24→20:25)
[2020-08-15] MEDS: [UNRECOGNIZED DRUG - OTHER] IV SCH ×8 (20:24)
[2020-08-15] MEDS: TAMSULOSIN HCL 0.4 MG CAP PO SCH (20:25)
[2020-08-15] MEDS: FAT EMULSIONS 250 ML IV SCH (20:25)
[2020-08-15] MEDS: [UNRECOGNIZED DRUG - OTHER] IV SCH ×7 (20:25)
[2020-08-15] MEDS: LATANOPROST 2.5 ML DROPS (XALATAN) OP SCH (21:00)
[2020-08-16] VITALS (24 sets, daily range): BP systolic 99–147
--- NOTE | 2020-08-16 | NUR ---
Unable to give patient enema, patient is too unstable. Patient is on multiple cardiac drips.
[2020-08-16] MEDS: PIPERACILLIN/TAZO 3.375/DEX-IS 50 ML IV SCH ×3 (05:46→18:52)
[2020-08-16 06:14] LABS: BASOPHILS % (AUTO) 0.2 % (0.0-2.0); EOSINOPHILS % (AUTO) 0.1 % (0.0-4.0); HEMOGLOBIN 11.1 g/dL (14.0-18.0); INR 1.1 (0.80-1.20); LYMPHOCYTES # (AUTO) 0.4 K/uL (1.0-5.5); LYMPHOCYTES % (AUTO) 2.9 % (20.5-51.5); MEAN CORPUSCULAR HEMOGLOBIN 20 pg (27-31); MEAN CORPUSCULAR HGB CONC 32 % (32-36); MEAN CORPUSCULAR VOLUME 63 fL (79.0-98.0); MONOCYTES # (AUTO) 1.5 K/uL (0.0-1.0); MONOCYTES % (AUTO) 11.5 % (1.7-9.3); NEUTROPHILS # (AUTO) 10.9 K/uL (1.8-7.7); NEUTROPHILS % (AUTO) 85.3 % (40.0-70.0); PLATELET COUNT (AUTO) 177 K/uL (130-430); PROTHROMBIN TIME 11.7 SECS (9.5-12.5); RED BLOOD CELL COUNT(AUTO) 5.54 MIL/uL (4.2-6.2); RED CELL DISTRIBUTION WIDTH 15.3 % (9.0-15.0); WHITE BLOOD COUNT (AUTO) 12.8 K/uL (4.8-10.8)
[2020-08-16 06:29] LABS: ALANINE AMINOTRANSFERASE 361 U/L (12-78); ALBUMIN 1.6 g/dL (3.4-4.8); ANION GAP 17 (5-15); ASPARTATE AMINOTRANSFERASE 343 U/L (10-37); CALCIUM 7.7 mg/dL (8.4-11.0); CHLORIDE 101 mmol/L (98-107); CREATININE 6.93 mg/dL (0.55-1.30); GLUCOSE 143 mg/dL (70-99); LIPASE 160 U/L (73-393); PHOSPHORUS 5.9 mg/dL (2.7-4.5); SODIUM SERUM 142 mmol/L (136-145); TOTAL BILIRUBIN 1.7 mg/dL (0.0-1.0)
[2020-08-16] MEDS ORDERED: PHENYLEPHRINE HCL 10 MG/ML VIAL (NEOSYNEPHRINE) ONE (06:44)
[2020-08-16] MEDS: PHENYLEPHRINE HCL 50 MG in NS 245 ML IV PRN ×2 (07:22→17:48)
--- NOTE | 2020-08-16 07:30 | NUR ---
ENDORSEMENT Pt care endorsed to jules REGAN.
[2020-08-16 07:39] LABS: UREA NITROGEN, BLOOD 106 mg/dL (8-21)
[2020-08-16] MEDS: ISOSORBIDE MONONITRATE 30 MG TAB.ER.24H PO SCH (07:46)
--- NOTE | 2020-08-16 08:00 | NUR ---
AM ASSESSMENT. PT TACHYPNEIC, USING FACIAL BIPAP, AMIODARONE DRIP INFUSING 0.5 MG/MIN, NEOSYNEPHRINE DRIP AT 1 MCG/KG/MIN, TPN AT 53 ML PER HR, LIPIDS AT 5 ML PER HR, ABDOMEN DISTENDED, HYPOACTIVE BOWEL SOUNDS, SKIN WARM TO TOUCH, AFEBRILE, ARNDT CATHETER WITH SCANTY AMOUNT OF MASOUD COLOR URINE. HIS SON SIA CALLED. HE WAS GIVEN UPDATE ON PT'S CONDITION.
[2020-08-16 08:06] LABS: FERRITIN 380 ng/mL (30-400)
[2020-08-16] MEDS ORDERED: TPN PERIPHERAL IV SCH ×16 (08:18→21:00)
[2020-08-16] MEDS ORDERED: [UNRECOGNIZED DRUG - OTHER] IV SCH ×16 (08:18→21:00)
[2020-08-16] MEDS ORDERED: SODIUM ACETATE IV SCH ×16 (08:18→21:00)
[2020-08-16] MEDS ORDERED: CALCIUM GLUCONATE IV SCH ×16 (08:18→21:00)
[2020-08-16] MEDS: OXYBUTYNIN CHLORIDE 5 MG TABLET PO SCH (08:43)
[2020-08-16] MEDS: ATORVASTATIN 20 MG TABLET PO SCH (08:43)
[2020-08-16] MEDS: predniSONE 20 MG TABLET PO SCH (08:43)
[2020-08-16] MEDS: FINASTERIDE 5 MG TABLET (PROSCAR) PO SCH (08:43)
[2020-08-16] MEDS: ASPIRIN 81 MG TAB.CHEW PO SCH (08:43)
--- NOTE | 2020-08-16 08:57 | NUR ---
FAMILY RECEIVED A CALL FROM PT'S SISTER MERCY, UPDATE GIVEN ON HIS STATUS, SHE WANTED TO COME AND SEE HIM, DUE TO COVID, SHE WAS NOT GOING TO DO IT. SHE WAS TOLD THAT THE IPAD CAN BED USED AND STILL SHE DID NOT LIKE THIS IDEA.
[2020-08-16] MEDS: FAMOTIDINE PF 20 MG/2 ML VIAL IVP SCH ×2 (09:10→21:09)
[2020-08-16] MEDS: INSULIN GLARGINE 100 UNITS/ML 10 ML VIAL SUBCUT SCH (09:10)
--- NOTE | 2020-08-16 09:12 | NUR ---
TEST. KUB DONE AT BEDSIDE.
[2020-08-16 11:06] LABS: HEPATITIS A AB, IgM Negative (Negative); HEPATITIS B CORE AB, IgM Negative (Negative); HEPATITIS B SURFACE AG Negative (Negative)
[2020-08-16] MEDS: AMIODARONE HCL 450 MG in D5W 241 ML IV SCH (11:38)
--- NOTE | 2020-08-16 14:30 | NUR ---
FAMILY. PT'S SON SIA CAME IN WITH HIS SISTER.
--- NOTE | 2020-08-16 16:45 | NUR ---
SKIP TENDER. PT'S FAMILY MET DR DELGADO IN THE ROOM. SON RAISED HIS QUESTIONS AND WERE ANSWERED BY .
[2020-08-16] MEDS ORDERED: HEPARIN SODIUM,PORCINE 5,000 UNITS/ML VIAL ONE (17:27)
[2020-08-16] MEDS: INSULIN REGULAR, HUMAN 100 UNITS/ML, 10 ML VIAL (humuLIN R) SUBCUT PRN (18:11)
--- NOTE | 2020-08-16 20:00 | NUR ---
HEMODIALYSIS ON GOING. BP LOW, NEOSYNEPHRINE TITRATED UP EARLIER. PT RESPONDS TO NOXIOUS STIMULI. ON BIPAP 05/02, BACK-UP RATE 16 FIO2 28%. RIJarrett HORACIO CATH PATENT, DRSG D/I. SILKE PICC LINE DRSG D/I. REE SCD'S IN PLACE. ARNDT CATH PATENT DRAINING OLIGURIC CLOUDY MASOUD URINE. SINUS RHYTHM.
--- NOTE | 2020-08-16 20:15 | NUR ---
HEMODIALYSIS DONE, 600CC OUT.
--- NOTE | 2020-08-16 20:45 | NUR ---
SISTER PABLO COKER UPDATED ON STATUS.
[2020-08-16] MEDS: TAMSULOSIN HCL 0.4 MG CAP PO SCH (21:00)
[2020-08-16] MEDS: LATANOPROST 2.5 ML DROPS (XALATAN) OP SCH (21:00)
[2020-08-16] MEDS: FAT EMULSIONS 250 ML IV SCH (21:08)
--- NOTE | 2020-08-16 23:00 | NUR ---
1 LARGE FORMED BROWN STOOL DEFECATED. CLEANED. CHG BATH GIVEN. ORAL CARE DONE. HEIDI-CARE, ARNDT CARE, SKIN CARE , BACK CARE GIVEN. GRIMACES. DOES NOT ASSIST WITH TURNING. XANDER PROC WELL.
[2020-08-17] VITALS (25 sets, daily range): BP systolic 91–155
--- NOTE | 2020-08-17 | NUR ---
ACCU-CHEK 141, NO INSULIN DUE PER SLIDING SCALE COV. NEOSYNEPHRINE TITRATED DOWN TO 2 MCG/KG/MIN.
[2020-08-17] MEDS: PIPERACILLIN/TAZO 3.375/DEX-IS 50 ML IV SCH ×5 (00:09→23:13)
[2020-08-17] MEDS: INSULIN REGULAR, HUMAN 100 UNITS/ML, 10 ML VIAL (humuLIN R) SUBCUT PRN ×5 (00:29→23:27)
[2020-08-17] MEDS ORDERED: PHENYLEPHRINE HCL 10 MG/ML VIAL (NEOSYNEPHRINE) ONE (00:34)
[2020-08-17] MEDS: PHENYLEPHRINE HCL 50 MG in NS 245 ML IV PRN (02:06)
--- NOTE | 2020-08-17 03:15 | NUR ---
BP 130/82, NEOSYNEPHRINE TITRATED DOWN TO 1.5 MCG/KG/MIN.
--- NOTE | 2020-08-17 04:00 | NUR ---
BP 121/69, NEOSYNEPHRINE TITRATED DOWN TO 1.0 MCG/KG/MIN. REPOSITIONED.
[2020-08-17 05:55] LABS: ALANINE AMINOTRANSFERASE 271 U/L (12-78); ALBUMIN 1.3 g/dL (3.4-4.8); ANION GAP 18 (5-15); ASPARTATE AMINOTRANSFERASE 289 U/L (10-37); CALCIUM 7.4 mg/dL (8.4-11.0); CHLORIDE 99 mmol/L (98-107); CREATININE 6.33 mg/dL (0.55-1.30); GLUCOSE 145 mg/dL (70-99); PHOSPHORUS 4.9 mg/dL (2.7-4.5); POTASSIUM 3.9 mmol/L (3.5-5.1); SODIUM SERUM 142 mmol/L (136-145); TOTAL BILIRUBIN 1.5 mg/dL (0.0-1.0); UREA NITROGEN, BLOOD 87 mg/dL (8-21)
--- NOTE | 2020-08-17 06:00 | NUR ---
ACCU-CHEK 147, NO INSULIN DUE PER SLIDING SCALE COV. UO 10 CC. REMAINS IN GUARDED CONDITION.
[2020-08-17 06:59] LABS: BASOPHILS # (AUTO) 0.1 K/uL (0.0-0.2); BASOPHILS % (AUTO) 0.2 % (0.0-2.0); EOSINOPHILS # (AUTO) 0.1 K/uL (0.0-0.4); EOSINOPHILS % (AUTO) 0.4 % (0.0-4.0); HEMATOCRIT 34.5 % (36-54); LYMPHOCYTES # (AUTO) 0.8 K/uL (1.0-5.5); LYMPHOCYTES % (AUTO) 3.9 % (20.5-51.5); MEAN CORPUSCULAR HEMOGLOBIN 20 pg (27-31); MEAN CORPUSCULAR HGB CONC 32 % (32-36); MEAN CORPUSCULAR VOLUME 63 fL (79.0-98.0); MONOCYTES % (AUTO) 9.4 % (1.7-9.3); NEUTROPHILS # (AUTO) 18.7 K/uL (1.8-7.7); NEUTROPHILS % (AUTO) 86.1 % (40.0-70.0); PLATELET COUNT (AUTO) 186 K/uL (130-430); RED CELL DISTRIBUTION WIDTH 14.7 % (9.0-15.0); WHITE BLOOD COUNT (AUTO) 21.7 K/uL (4.8-10.8)
[2020-08-17] MEDS: CALCIUM GLUCONATE IV SCH ×8 (07:30)
[2020-08-17] MEDS: TPN PERIPHERAL IV SCH ×8 (07:30)
[2020-08-17] MEDS: SODIUM ACETATE IV SCH ×8 (07:30)
[2020-08-17] MEDS: [UNRECOGNIZED DRUG - OTHER] IV SCH ×8 (07:30)
--- NOTE | 2020-08-17 07:30 | NUR ---
Opening Note Received plan of care via sbar from endorsing RN.
[2020-08-17] MEDS: ASPIRIN 81 MG TAB.CHEW PO SCH (09:00)
[2020-08-17] MEDS: FINASTERIDE 5 MG TABLET (PROSCAR) PO SCH (09:00)
[2020-08-17] MEDS: ISOSORBIDE MONONITRATE 30 MG TAB.ER.24H PO SCH (09:00)
[2020-08-17] MEDS: predniSONE 20 MG TABLET PO SCH (09:00)
[2020-08-17] MEDS: ATORVASTATIN 20 MG TABLET PO SCH (09:00)
[2020-08-17] MEDS: OXYBUTYNIN CHLORIDE 5 MG TABLET PO SCH (09:00)
[2020-08-17] MEDS: FAMOTIDINE PF 20 MG/2 ML VIAL IVP SCH ×2 (09:54→20:06)
[2020-08-17] MEDS: INSULIN GLARGINE 100 UNITS/ML 10 ML VIAL SUBCUT SCH (09:56)
--- NOTE | 2020-08-17 14:45 | NUR ---
Wound Evaluation: Wound Consult ordered for Low Yeyo Score. Patient evaluated for a low Yeyo score of 12. Patient was obtunded, and received in a [facility] Bed with an IsoFlex [place] mattress. Patient needs to be turned in bed. Patient is on Neosynephrine drip at 1.0 Mcg/Kg/Min, Levophed was discontinued. Patient's lower extremities are contractured and are crossed over each other. Skin assessment: 1. Sacrococcygeal area (left greater than right): Area of dark discolored skin. Skin is dark, so the possibility of an sDTI is not eliminated. Area is not soft or boggy. Recommend: Cover site with sacral foam dressing. Reposition patient side to side only every 2 hours by placing 1 pillow underneath trunk, and 1 pillow underneath pelvis bilaterally. Turn patient by placing an additional pillow underneath left side, then underneath right side of patient, alternating every two hours. 2. Left Medial First Metatarsal Head: Blanchable redness. 3. Left medial heel: Small area of light purple discoloration. 4. Right lateral foot: Blanchable redness. Recommend: Place foam dressings on reddened and bony areas daily. Reposition patient side to side only every 2 hours by placing 1 pillow underneath lower leg, and 1 pillow in between bilateral knees and malleoli. Ensure that heels and malleoli are floating at all times. Recommend reposition patient side to side only every 2 hours with pillow support. Elevate offload and float bilateral feet, heels, and malleoli by placing 1 pillow underneath lower leg, and 1 pillow in between bilateral knees and malleoli. Ensure that heels and malleoli are floating at all times. Offload pressure areas with pillows for pressure re-distribution. Perform skin care and monitor skin integrity Q shift. Use moisture barrier cream on moisture susceptible areas QID and PRN for soiling. Maintain patient on a low air-loss mattress.
--- NOTE | 2020-08-17 16:00 | NUR ---
Dr. Lemon at bedside. Provided patient update. to speak to Luther son regarding care for father moving forward.
[2020-08-17] MEDS: LORazepam 2 MG/ML VIAL IVP PRN ×2 (18:36→23:14)
--- NOTE | 2020-08-17 19:22 | NUR ---
Closing Note Provided patient update to receiving RN via sbar.
--- NOTE | 2020-08-17 19:30 | NUR ---
INITIAL NOTE PATIENT IS LAYING IN BED AND ON BIPAP, WITH NEOSYNEPHRINE @ 0.4 MCG/KG/MIN. CALL LIGHT IN REACH.PATIENT UNSUCCESSFULLY DEMONSTRATES USAGE OF CALL LIGHT. WILL CONTINUE TO MONITOR. BED IS LOCKED, ALARMED, AND AT THE LOWEST POSITION. FALL, SAFETY, ASPIRATION, AND RESPIRATORY PRECAUTIONS WILL BE IN PLACE THROUGHOUT THE SHIFT. PLAN OF CARE IS DISCUSSED WITH PATIENT.
[2020-08-17] MEDS: TAMSULOSIN HCL 0.4 MG CAP PO SCH (20:06)
[2020-08-17] MEDS: FAT EMULSIONS 250 ML IV SCH (20:08)
[2020-08-17] MEDS: LATANOPROST 2.5 ML DROPS (XALATAN) OP SCH (20:08)
[2020-08-17] MEDS ORDERED: BISACODYL 10 MG/SUPPOSITORY RC PRN (20:15)
[2020-08-17] MEDS ORDERED: MILK OF MAGNESIA 30 ML UDC PO PRN (20:30)
[2020-08-17] MEDS ORDERED: TPN PERIPHERAL IV SCH ×9 (21:00)
[2020-08-17] MEDS ORDERED: POTASSIUM ACETATE IV SCH ×9 (21:00)
[2020-08-17] MEDS ORDERED: [UNRECOGNIZED DRUG - OTHER] IV SCH ×9 (21:00)
[2020-08-17] MEDS ORDERED: SODIUM ACETATE IV SCH ×9 (21:00)
--- NOTE | 2020-08-17 21:30 | NUR ---
UPDATED SIA ON PT.
[2020-08-18] VITALS (15 sets, daily range): BP systolic 77–131
--- NOTE | 2020-08-18 00:47 | NUR ---
Witnessed Janeth RN titrate Neosynephrine to 0.43 mcg/kg/min
[2020-08-18] MEDS: PIPERACILLIN/TAZO 3.375/DEX-IS 50 ML IV SCH (05:38)
[2020-08-18] MEDS: INSULIN REGULAR, HUMAN 100 UNITS/ML, 10 ML VIAL (humuLIN R) SUBCUT PRN ×2 (05:42→12:39)
--- NOTE | 2020-08-18 07:27 | NUR ---
stanleyar report endorsed to raul nurse. Addendum: 08/18/20 at 1177 by Janeth Ma RN closing note
[2020-08-18 07:34] LABS: ALANINE AMINOTRANSFERASE 176 U/L (12-78); ALBUMIN 1.1 g/dL (3.4-4.8); ANION GAP 23 (5-15); ASPARTATE AMINOTRANSFERASE 182 U/L (10-37); CALCIUM 7.8 mg/dL (8.4-11.0); CHLORIDE 95 mmol/L (98-107); GLUCOSE 198 mg/dL (70-99); PHOSPHORUS 7.3 mg/dL (2.7-4.5); POTASSIUM 4.1 mmol/L (3.5-5.1); SODIUM SERUM 140 mmol/L (136-145); TOTAL BILIRUBIN 1.4 mg/dL (0.0-1.0)
--- NOTE | 2020-08-18 07:40 | NUR ---
opening notes pt resting in bed, chest rise and fall noted. pt on bipap, tolerating well. iv lines intact and patent, no signs of infiltration noted, fluids running as ordered per md, pt on neosyne drip 0.43mcg/kg/min at this time, tolerating well. no acute distress noted. sccds on and in place. gardner catheter intact and draining. all needs met. call light in reach. fall and aspiration precautions in place.
[2020-08-18 08:03] LABS: UREA NITROGEN, BLOOD 119 mg/dL (8-21)
[2020-08-18] MEDS: ISOSORBIDE MONONITRATE 30 MG TAB.ER.24H PO SCH (08:08)
[2020-08-18] MEDS: ASPIRIN 81 MG TAB.CHEW PO SCH (08:08)
[2020-08-18] MEDS: OXYBUTYNIN CHLORIDE 5 MG TABLET PO SCH (08:08)
[2020-08-18] MEDS: ATORVASTATIN 20 MG TABLET PO SCH (08:09)
[2020-08-18] MEDS: FINASTERIDE 5 MG TABLET (PROSCAR) PO SCH (08:09)
[2020-08-18] MEDS: predniSONE 20 MG TABLET PO SCH (08:09)
[2020-08-18] MEDS: FAMOTIDINE PF 20 MG/2 ML VIAL IVP SCH (08:18)
[2020-08-18] MEDS: INSULIN GLARGINE 100 UNITS/ML 10 ML VIAL SUBCUT SCH (08:19)
--- NOTE | 2020-08-18 08:26 | NUR ---
routine meds administered as ordered per md, verbalized education, tolerated well.
--- NOTE | 2020-08-18 10:00 | NUR ---
ROUNDS PT RESTING IN BED, CHEST RISE AND FALL NOTED.
--- NOTE | 2020-08-18 11:05 | NUR ---
DIALYSIS START ON PATIENT.
[2020-08-18] MEDS ORDERED: HEPARIN SODIUM,PORCINE 5,000 UNITS/ML VIAL MC ONE ×2 (11:15)
--- NOTE | 2020-08-18 11:30 | NUR ---
SPOKE TO SIA ON THE PHONE, STATING HIM AND HIS SISTER WILL VISIT THE PATIENT AT 1300, CLEARED WITH CHARGE NURSE AND FORESTRY SUPERVISOR.
--- NOTE | 2020-08-18 11:40 | NUR ---
Witnessed Tran RN titrate Neosynephrine to 0.49 mcg/kg/min
--- NOTE | 2020-08-18 11:45 | NUR ---
SS notes/Family: COMPUTER OPERATIONS SPECIALIST received a call from pt's daughter, Doris Childress (p:[phone]) who stated if pt passes, she will be making arrangements for patient.
--- NOTE | 2020-08-18 11:54 | NUR ---
Witnessed Tran RN titrate Neosynephrine to 0.58 mcg/kg/min, BP 70/30 on HD
--- NOTE | 2020-08-18 12:33 | NUR ---
Witnessed Neosynephrine infusing at 0.61mcgs/kg/min
--- NOTE | 2020-08-18 12:38 | NUR ---
Witnessed Neosynephrine infusing at 0.64 mcgs/kg/min
--- NOTE | 2020-08-18 12:42 | NUR ---
ACCUCHECK DONE, INSULIN COVERAGE ADMINISTERED PER SLIDING SCALE, TOLERATED WELL.
--- NOTE | 2020-08-18 12:43 | NUR ---
Witnessed Neosynephrine infusing at 0.67 mcgs/kg/min
--- NOTE | 2020-08-18 13:00 | NUR ---
Witnessed Neosynephrine infusing at 0.70 mcgs/kg/min
--- NOTE | 2020-08-18 13:05 | NUR ---
Witnessed Neosynephrine infusing at 0.79 mcgs/kg/min
--- NOTE | 2020-08-18 13:06 | NUR ---
Nutrition F/U RD reviewed pt's current EMR record including diet Hx, physician notes, nursing notes, pertinent labs/meds/procedures, care trends, and care activity. Admission Dx: Multiorgan failure, sepsis, NSTEMI PMH: chronic renal failure, DM, CAD s/p 4-vessel bypass, urinary retention, and HLD per physician notes Pt also found w/ renal failure per physician notes SARS-CoV-2 Ag (Rapid) Negative 08/11 Current Diet Order/Nutrition Support: NPO x5 days & TPN D30%, AA5.4% at 70 ml/hr, IL20% at 5 ml/hr via central line TPN Provides: 1278 kcal/day, 45 gm protein/day, 1800 ml free water/day, and GIR: 3.9 gm CHO/kg/min TPN Meets: 85% of lower end of estimated caloric needs and 69% of lower end of estimated protein needs Subjective Info: Pt w/ multiple organ failure, remains on BIPAP, DNI status, currently on TPN for nutrition support. Pt had hemodialysis yesterday, last BM 08/18 x2. Yeyo score of 12, RD reviewed Dairy Cattle Farm Manager note 08/17, no pressure injury documented. Pt w/ 1+ pitting bilateral generalized edema. Abdomen is distended w/ active bowel sounds. clerical adjudicator at bedside, HD ongoing during RD visit to unit earlier. RD s/w pt's primary RN who denied any issues w/ nutrition support. RD placed phone call to pharmD and was asked to leave a message. RD rec to increase TPN infusion rate to meet estimated needs. Pertinent Medications: piperacillin/tazobactam IV, ativan, SSI, prednisone, Zofran, Dulcolax Pertinent Labs: 08/17: WBC 21.7 H, 08/18 BG 198 H, POC BG 209 H, BUN 119 H, CRE 8 H Ht: 5'2"/62" Wt: 143#/64 kg (08/13) New Wt: 141#/64 kg (08/15) -- stable Body Mass Index: 25.9 kg/m2 [place]/Adjusted Body Weight: IBW: 118#/54 kg Estimated Energy Expenditure (kcals/day) 3110-2724 kcal/day (MSJ x 1.2-1.5 CBW d/t sepsis) Estimated Protein Required (g/day) 65-78 gm/day (1-1.2 gm/kg CBW d/t ARF, geriatric age) Estimated Fluid Required (l/day) Per physician note d/t ARF Problem/Etiology/Signs/Symptoms Increased nutritional needs related to hypermetabolic process as evidenced by estimated nutritional requirements for sepsis and multiorgan failure. *ongoing Altered nutrition-related labs related to endocrine and renal dysfunction as evidenced by abnormal BG, POC BG, BUN, and CRE lab values. *ongoing Expected Outcomes/Goals - Monitor TPN/PPN support tolerance and intake w/ goal of pt meeting at least 75% of estimated nutritional needs, labs trending WNL, normal GI function, and skin integrity/wt maintenance Dietitian Recommendations *Recommend: increase TPN infusing rate to goal. *TPN D30%, AA5.4% at 75 ml/hr (goal rate), IL20% at 5 ml/hr daily via peripheral line Provides: 1354 kcal/day, 49 gm protein/day, 1920 ml total volume/day, and GIR: 2.9 gm CHO/kg/min Meets: 90% of lower end of estimated caloric needs and 75% of lower end of estimated protein needs Follow Up High Risk: F/U in 2-3 days
[2020-08-18 13:07] LABS: ANTI-SMOOTH MUSCLE AB 7 Units (0-19)
--- NOTE | 2020-08-18 13:16 | NUR ---
Dietitian Recommendations *Recommend: increase TPN infusing rate to goal. *TPN D30%, AA5.4% at 75 ml/hr (goal rate), IL20% at 5 ml/hr daily via peripheral line Provides: 1354 kcal/day, 49 gm protein/day, 1920 ml total volume/day, and GIR: 2.9 gm CHO/kg/min Meets: 90% of lower end of estimated caloric needs and 75% of lower end of estimated protein needs Please see Nutrition F/U note for details JANIE COVARRUBIAS
--- NOTE | 2020-08-18 13:42 | NUR ---
Witnessed Neosynephrine infusing at 1.0 mcgs/kg/min for continued low BP on HD. BP 73/30 and HR 130.
--- NOTE | 2020-08-18 14:00 | NUR ---
DIALYSIS FINISHED 400 ML OUT.
--- NOTE | 2020-08-18 14:09 | NUR ---
Dr Lemon speaks to pts sonLuther regarding prognosis and pt not making any progress. Discussed options of comfort care versus continued aggressive therapy. Questions answered. Pts son is upset and wants to see how his father does without bipap. Asking what the saturation is without it. RT at bedside to place pt on NC 02 and sons asks for a mask 02. RT placed pt on a simple mask 30%. 02 sats 96. HR 127, RR 30. Pts son told Dr. Lemon that his father was walking and driving a day prior to coming to the hospital.
--- NOTE | 2020-08-18 14:09 | NUR ---
DR. ANDERS SPOKE TO FAMILY MEMBERS AT BEDSIDE.
[2020-08-18] MEDS ORDERED: VASOPRESSIN 20 UNITS/ML VIAL IV ONE (14:10)
[2020-08-18] MEDS ORDERED: VASOPRESSIN 100 UNITS in D5W 45 ML IV PRN (14:15)
[2020-08-18] MEDS: ALBUTEROL SULFATE 0.083% 2.5 MG/3 ML VIAL.NEB INH PRN (14:34)
--- NOTE | 2020-08-18 14:57 | NUR ---
Son requesting breathing treatments be changed to routine. Spoke with Dr. Lemon and informed him of pt being placed on ventimask 02 and sons request. Orders left.
[2020-08-18] MEDS ORDERED: ATROPINE SULFATE 1 MG/10 ML SYRINGE IVP ONE (15:25)
--- NOTE | 2020-08-18 15:29 | NUR ---
Pts went bradycardic rate 40's while on VM 02. Pt not breathing upon entering the room. Was going to call a code blue, as pt is a modified code, DNI and pts DPOA who was at the bedside said to not call a code and said " let him go, let him go". Dr. Damon quickly spoke to pts DPOA who told him the same thing, therefore no code blue was called and Dr. Damon made the pt a DNR and pronounced the patient.
--- NOTE | 2020-08-18 15:37 | NUR ---
1435 PT TAKEN OFF BIPAP AND PLACED ON VENTURI MASK.30 FIO2 AND HHN TX GIVEN PER FAMILY. SAT 98% HR 126 RR 29.RN AWARE. Addendum: 08/18/20 at 1539 by Sobia Burger RT Amended: Links added.
--- NOTE | 2020-08-18 17:29 | NUR ---
INFORMED MD'S PATIENT DR. SINGH DIALED [phone] SPOKE TO SATYA KHAN (DR. GRISSOM AUTOCAD DESIGNER) DIALED [phone] SPOKE TO ANDRES GTZ DIALED [phone] SPOKE TO SATYA GIRON IN NURSING STATION DR. ANDERS SPOKE TO DIALED [phone]
[2020-08-18] MEDS ORDERED: POTASSIUM CHLORIDE IV SCH ×9 (21:00)
[2020-08-18] MEDS ORDERED: SODIUM ACETATE IV SCH ×9 (21:00)
[2020-08-18] MEDS ORDERED: [UNRECOGNIZED DRUG - OTHER] IV SCH ×9 (21:00)
[2020-08-18] MEDS ORDERED: TPN PERIPHERAL IV SCH ×9 (21:00)
== END 2020-08-18 15:29 | DRG 871 ==
LOC: SED 17:08 → SIC 19:19
PROVIDERS: ADMIT Internal Medicine Hospice and Palliative Medicine; ATTEND Internal Medicine Hospice and Palliative Medicine
PROC: 5A09557 Assistance with Respiratory Ventilation, Greater than 96 Consecutive Hours, Continuous Positive Airway Pressure (ICD-10-PCS; 2020-08-12)
PROC: 5A1D70Z Performance of Urinary Filtration, Intermittent, Less than 6 Hours Per Day (ICD-10-PCS; 2020-08-14)
PROC: 02HV33Z Insertion of Infusion Device into Superior Vena Cava, Percutaneous Approach (ICD-10-PCS; principal; 2020-08-15)
PROC: B548ZZA Ultrasonography of Superior Vena Cava, Guidance (ICD-10-PCS; 2020-08-15)
PROC: 5A1D70Z Performance of Urinary Filtration, Intermittent, Less than 6 Hours Per Day (ICD-10-PCS; 2020-08-16)
PROC: 5A1D70Z Performance of Urinary Filtration, Intermittent, Less than 6 Hours Per Day (ICD-10-PCS; 2020-08-17)
DX: A41.9 Sepsis, unspecified organism (principal); G93.41 Metabolic encephalopathy; J96.01 Acute respiratory failure with hypoxia; I21.4 Non-ST elevation (NSTEMI) myocardial infarction; J69.0 Pneumonitis due to inhalation of food and vomit; N17.0 Acute kidney failure with tubular necrosis; I50.23 Acute on chronic systolic (congestive) heart failure; E87.2 Acidosis; I13.0 Hypertensive heart and chronic kidney disease with heart failure and stage 1 through stage 4 chronic kidney disease, or unspecified chronic kidney disease; Z66 Do not resuscitate; E11.22 Type 2 diabetes mellitus with diabetic chronic kidney disease; E11.65 Type 2 diabetes mellitus with hyperglycemia; E78.5 Hyperlipidemia, unspecified; I25.10 Atherosclerotic heart disease of native coronary artery without angina pectoris; I25.5 Ischemic cardiomyopathy; R33.9 Retention of urine, unspecified; K56.41 Fecal impaction; Z20.822 Contact with and (suspected) exposure to COVID-19; N18.9 Chronic kidney disease, unspecified; Z82.49 Family history of ischemic heart disease and other diseases of the circulatory system; Z95.1 Presence of aortocoronary bypass graft; Z88.5 Allergy status to narcotic agent; Z88.8 Allergy status to other drugs, medicaments and biological substances
CPT/HCPCS: 36415; 36600; 71045; 74018; 76376; 76700-TC; 80053; 80061; 80074; 81000-TC; 82550-TC; 82728; 82803-TC; 82962; 83516; 83540-TC; 83550-TC; 83605; 83615-TC; 83690-TC; 83735-TC; 83880; 84100-TC; 84478-TC; 84484; 85007; 85025; 85027; 85610-TC; 85730-TC; 87040-TC; 87081; 90935; 90937; 93005; 93306; 94640; 94660; 95816; 96361; 96365; 96367; 96368; 96372; 96375; 96376; 99291; C1751; C9113; J0282; J0456; J0461; J0610; J1170; J1200; J1644; J1815; J1940; J2001; J2060; J2370; J2405; J2543; J2930; J3010; J3475; J3480; J3490; J7030; J7050; J7060; J7512; J7613; U0003